=== PATIENT | male | born 1990 | race Caucasian/White ===

== ENCOUNTER 2017-10-30 07:16 | Day surgery (SDC) | payer OTHER ==
[2017-10-27 11:55] LABS: Absolute Lymphocytes (CBC) 1.9 K/uL (0.7-4.9); Absolute Monocytes 0.5 K/uL (0.1-1.3); Absolute Neutrophil 3.4 K/uL (1.8-8.0); Basophils % 0.7 % (0-1.3); Eosinophils % 1.5 % (0-4.4); Hematocrit 45.3 % (39.6-49.0); Lymphocytes % 32.3 % (15.3-44.8); MCH 29.6 pg (27.0-35.0); MCV 85.9 fL (80-100); Monocytes % 8.9 % (3.3-12.3); RBC Red Blood Cell Count 5.28 M/uL (4.33-5.43)
[2017-10-27 12:12] LABS: Potassium 4.1 mmol/L (3.5-5.1)
[2017-10-27 12:16] LABS: Albumin 4.4 g/dL (3.4-5.0); Bilirubin Direct 0.1 mg/dL (0-0.2); Bilirubin Total 0.7 mg/dL (0.2-1.0); Protein, Total 7.9 g/dL (6.4-8.2)
[2017-10-30] MEDS ORDERED: CEFOXITIN/SWI 1gm 1 GM/10 ML SYR ONE (07:32)
[2017-10-30] MEDS: Ringers Lactate 1,000 ML IV ONE ×2 (07:38→08:39)
[2017-10-30] MEDS ORDERED: PROPOFOL 200 MG/20 ML VIAL IV ONE (08:18)
[2017-10-30] MEDS ORDERED: MIDAZOLAM HCL 2 MG/2 ML INJ ONE (08:22)
[2017-10-30] MEDS ORDERED: LIDOCAINE 2% MPF 5 ML VIAL ONE (08:22)
[2017-10-30] MEDS ORDERED: FENTANYL CITR 100 MCG/2 ML ONE (08:22)
[2017-10-30] MEDS ORDERED: ONDANSETRON HCL 40 MG/20 ML VIAL ONE (08:23)
[2017-10-30] MEDS ORDERED: ROCURONIUM 50 MG/5 ML VIAL IV ONE (08:23)
--- NOTE | 2017-10-30 09:18 | P.BOP ---
Preoperative diagnosis: symptomatic cholithiasis, gallbladder polyps, RUQ pain Postoperative diagnosis: same Primary procedure: Laparoscopic cholecystectomy Estimated blood loss: <5cc Specimen: gb Findings: as above Anesthesia: General Complications: None Transferred to: Recovery Room Condition: Good
[2017-10-30] MEDS ORDERED: GLYCOPYRROLATE 0.2 MG/ML SYR ONE (09:19)
[2017-10-30] MEDS ORDERED: NEOSTIGMINE 1 MG/ML -5 ML SYRINGE ONE (09:19)
[2017-10-30] MEDS: MEPERIDINE HCL 50 MG/ML AMP ONE ×2 (09:54→10:00)
[2017-10-30] MEDS ORDERED: ONDANSETRON 4 MG/2 ML VIAL ONE (09:57)
[2017-10-30] MEDS ORDERED: CODEINE 30MG/APAP 300MG TAB ONE (10:39)
[2017-10-30] MEDS ORDERED: CODEINE 30MG/APAP 300MG TAB PO ONE (10:40)
--- NOTE | 2017-10-30 21:43 | OP ---
Date of Procedure: 10/30/2017 Surgeon: Raymond Dykes MD Preoperative Diagnoses: Symptomatic cholelithiasis, gallbladder polyps, right upper quadrant pain, c holecystitis. Postoperative Diagnoses: Symptomatic cholelithiasis, gallbladder polyps, right upper quadrant pain, cholecystitis. Procedure: Laparoscopic cholecystectomy. Anesthesia: General plus local. Indications: This is a case of a 27-year-old patient, comes to us with above diagnosis. Fully expla ined the benefits, alternatives, and risks of laparoscopic, possible open cholecystectomy which inclu de but not limited to infection, bleeding, damage to adjacent structures as complication, choledochol ithiasis, bile leak, pancreatitis, GA, and even . He also understands this may not relieve any symptoms. He might need more than one surgical intervention. He understood. Signed a consent. Description Of Procedure: The patient was brought to the operating room, placed in supine position. Anesthesia was without complication. Abdominal area was prepped and draped in a sterile fashion. M arcaine 0.5% injected for local anesthetic, followed by sharp incision of the skin in the infraumbili stacy region. Incision was carried down to fascia, which was opened under direct vision. Peritoneum w as encountered, which was opened under direct vision. Vicryl #1 placed inside the fascia. Jordyn tr ocar was carefully introduced. No bleeding was obtained. I placed 3 more trocars, 5 mm each one of them. One in the right upper quadrant under direct visualization. A grasper was placed in the fundu s of the gallbladder, another grasper in the infundibulum, retracting the gallbladder in the inferola teral fashion exposing the triangle of Calot. I obtained critical view of safety. Cystic duct and c ystic artery were clearly isolated free circumferentially and a connection between those and the gall bladder was clearly identified. I proceeded to ligate those with at least 3 clips proximal, 1 clip d istal, ligation in the middle. Same was done with the cystic artery. A small little branch of the c ystic artery was also ligated using same technique; hepatic arteries and common bile duct were protec shanda at all times. Gallbladder was removed from the liver using Bovie cauterizer and removed from abd ominal cavity using an EndoCatch through the umbilical incision. The area was inspected once again. Clips in gallbladder fossa were intact with no bile leak. No bleeding. In that moment I proceeded to remove the trocars under direct vision. Deflated pneumoperitoneum. Closed the fascia with #1 Solitario ryl irrigated the incision closed that with 3-0 chromic and skin with staple comes RA skin with a sub cuticular fashion. A 3-0 chromic and Steri-Strips on top. Sponge count and instrument counts were c orrect. The patient tolerated the procedure well. The patient was sent to recovery in stable condit ion FH are summary Juan Diego Bolanos. Diagnoses: Symptomatic cholelithiasis, gallbladder polyps, right upper quadrant pain, cholecystitis. Disposition: Home. Activity: As tolerated. No heavy lifting. Followup: Follow up in my office in 1 week. Call for appointment [phone]. Keep area dry for 48 ho urs, then may shower. Keep Steri-Strips intact. Medications: Include Tylenol No. 3 q.4 hours p.r.n. pain, Bactrim DS take b.i.d. NINA/RO Voice ID: [id number] Report ID: [id number]
== END 2017-10-30 11:35 | disposition home or self-care (01) ==
LOC: OR 07:16
PROVIDERS: ATTEND Surgery
PROC: 0FT44ZZ Resection of Gallbladder, Percutaneous Endoscopic Approach (ICD-10-PCS; principal; 2017-10-30 08:30)
DX: K80.10 Calculus of gallbladder with chronic cholecystitis without obstruction (principal); I10 Essential (primary) hypertension; Z88.6 Allergy status to analgesic agent
CPT/HCPCS: 36415; 80048; 80076; 82150; 83690; 85025; 88304; J2175; J2250; J2405; J2710; J3010

== ENCOUNTER 2017-11-15 18:06 | Emergency (ER) | payer OTHER ==
[2017-11-15] MEDS ORDERED: ASPIRIN 81 MG CHEWABLE TABLET ONE (18:34)
[2017-11-15] MEDS ORDERED: KETOROLAC 30 MG/ML INJ ONE (18:35)
[2017-11-15] MEDS ORDERED: NA CHLORIDE 0.9% 1,000 ML ONE (18:35)
[2017-11-15] MEDS ORDERED: PANTOPRAZOLE 40 MG INJ ONE (18:49)
[2017-11-15 18:57] LABS: Absolute Lymphocytes (CBC) 2.7 K/uL (0.7-4.9); Absolute Monocytes 0.6 K/uL (0.1-1.3); Absolute Neutrophil 3.9 K/uL (1.8-8.0); Eosinophils % 2.4 % (0-4.4); Hematocrit 44.8 % (39.6-49.0); Lymphocytes % 35.8 % (15.3-44.8); MCH 29.6 pg (27.0-35.0); MCV 86.1 fL (80-100); MPV 8.2 fL (7.6-11.3); Monocytes % 8.1 % (3.3-12.3); RBC Red Blood Cell Count 5.21 M/uL (4.33-5.43)
[2017-11-15 19:01] LABS: Protime INR 1.01
--- NOTE | 2017-11-15 19:14 | RAD REPORT ---
EXAM DESCRIPTION: [facility]o Single View11/15/2017 7:02 pm CLINICAL HISTORY: Chest pain COMPARISON: none FINDINGS: The lungs appear clear of acute infiltrate. The heart is normal size IMPRESSION: No acute abnormalities displayed
[2017-11-15 19:17] LABS: ALT/SGPT 29 U/L (12-78); AST/SGOT 14 U/L (15-37); Albumin 4.3 g/dL (3.4-5.0); Alkaline Phosphatase 71 U/L (45-117); BUN Blood Urea Nitrogen 16 mg/dL (7-18); Bicarbonate 29 mmol/L (21-32); Bilirubin Direct 0.1 mg/dL (0-0.2); Bilirubin Total 0.4 mg/dL (0.2-1.0); CKMB Creatine Kinase MB < 1.0 ng/mL (0.3-3.6); Creatine Phosphokinase 33 U/L (39-308); Glucose Level 94 mg/dL (74-106); Magnesium 2.3 mg/dL (1.8-2.4); NT PRO-BNP 18 pg/mL (<125); Potassium 3.5 mmol/L (3.5-5.1); Protein, Total 7.8 g/dL (6.4-8.2); Sodium Level 140 mmol/L (136-145)
[2017-11-15 20:44] LABS: Urine Blood NEGATIVE (NEG); Urine Glucose NEGATIVE (NEG); Urine Protein NEGATIVE (NEG); Urine pH 7.5 (5.0-7.0)
[2017-11-15] MEDS ORDERED: MAGNE/ALUM HYDROXD 30 ML UCUP ONE (20:57)
[2017-11-15] MEDS ORDERED: LIDOCAINE VISCOUS 2% SOLN 15 ML UDC ONE (20:57)
--- NOTE | 2017-11-15 21:48 | ER ---
Nurse's Notes [facility] Name: Juan Diego Bolanos Age: 27 yrs Sex: Male : 1990 Arrival Date: 11/15/2017 Time: 18:08 Bed 6 Private MD: Munir Porras Diagnosis: Other chest pain Presentation: 11/15 18:15 Presenting complaint: Patient states: Sternal chest pain that started this afternoon. aj Patient reports similar pain since starting Losartan "months ago." Describes pain as radiating up esophagus and across clavicles, "inflammation pain". Patient appears anxious. Transition of care: patient was not received from another setting of care. Onset of symptoms was November 15, 2017. Risk Assessment: Do you want to hurt yourself or someone else? Patient reports no desire to harm self or others. Initial Sepsis Screen: Does the patient meet any 2 criteria? No. Patient's initial sepsis screen is negative. Does the patient have a suspected source of infection? No. Patient's initial sepsis screen is negative. Care prior to arrival: None. 18:15 Method Of Arrival: Wheelchair 18:15 Acuity: ÁNGEL 3 aj Triage Assessment: 18:17 General: Appears in no apparent distress. comfortable, Behavior is calm, cooperative, aj appropriate for age. Pain: Complains of pain in right clavicle, left clavicle and mid-sternal area. Neuro: Level of Consciousness is awake, alert, obeys commands, Oriented to person, place, time, situation, Appropriate for age. Cardiovascular: Reports chest pain, Capillary refill < 3 seconds in bilateral fingers Patient's skin is warm and dry. Respiratory: Airway is patent Respiratory effort is even, unlabored, Respiratory pattern is symmetrical, hyperventilation the patient has mild shortness of breath. Derm: Skin is intact, is healthy with good turgor, Skin is pink, warm \\T\\ dry. normal. Historical: - Allergies: 18:17 No Known Allergies; aj - Home Meds: 18:17 losartan 100 mg oral tab 1 tab once daily [Active]; Nexium Oral [Active]; aj - PMHx: 18:17 GERD; Hypertension; aj - PSHx: 18:17 Cholecystectomy; aj - Immunization history:: Adult Immunizations up to date. - Social history:: Smoking status: Patient/guardian denies using tobacco. - Ebola Screening: : Patient negative for fever greater than or equal to 101.5 degrees Fahrenheit, and additional compatible Ebola Virus Disease symptoms Patient denies exposure to infectious person Patient denies travel to an Ebola-affected area in the 21 days before illness onset No symptoms or risks identified at this time. Screenin:42 Abuse screen: Denies threats or abuse. Denies injuries from another. Nutritional hj screening: No deficits noted. Tuberculosis screening: No symptoms or risk factors identified. Fall Risk None identified. Assessment: 18:43 Pain: Pain began. hj 18:43 Pain: Pain radiates to mid-sternal area and left clavicle and right clavicle. hj 18:43 General: Appears in no apparent distress. uncomfortable, Behavior is cooperative, aj appropriate for age, anxious. Neuro: Level of Consciousness is awake, alert, obeys commands, Oriented to person, place, time, situation, Appropriate for age. Cardiovascular: Reports chest pain, Heart tones S1 S2 present Capillary refill < 3 seconds Patient's skin is warm and dry. Pulses are all present. Rhythm is regular Chest pain. Respiratory: Airway is patent Respiratory effort is even, unlabored, Respiratory pattern is regular, symmetrical. GI: No signs and/or symptoms were reported involving the gastrointestinal system. : No signs and/or symptoms were reported regarding the genitourinary system. EENT: No signs and/or symptoms were reported regarding the EENT system. Derm: No signs and/or symptoms reported regarding the dermatologic system. Musculoskeletal: No signs and/or symptoms reported regarding the musculoskeletal system. 19:00 Reassessment: Patient and/or family updated on plan of care and expected duration. Pain aj level reassessed. Patient is alert, oriented x 3, equal unlabored respirations, skin warm/dry/pink. awaiting reports and POC: family in room;. 19:34 General: Appears in no apparent distress. Behavior is calm, cooperative, appropriate ea for age. Pain: Denies pain. Neuro: Level of Consciousness is awake, alert, obeys commands, Oriented to person, place, time, situation. Cardiovascular: Heart tones S1 S2 present Patient's skin is warm and dry. Respiratory: Airway is patent Respiratory effort is even, unlabored, Respiratory pattern is regular, symmetrical. GI: No signs and/or symptoms were reported involving the gastrointestinal system. : No signs and/or symptoms were reported regarding the genitourinary system. EENT: No signs and/or symptoms were reported regarding the EENT system. Derm: No signs and/or symptoms reported regarding the dermatologic system. Musculoskeletal: No signs and/or symptoms reported regarding the musculoskeletal system. 20:44 Reassessment: Patient and/or family updated on plan of care and expected duration. Pain ea level reassessed. Patient is alert, oriented x 3, equal unlabored respirations, skin warm/dry/pink. 21:44 Reassessment: Patient and/or family updated on plan of care and expected duration. Pain ea level reassessed. Patient is alert, oriented x 3, equal unlabored respirations, skin warm/dry/pink. 22:08 Reassessment: Patient and/or family updated on plan of care and expected duration. Pain ea level reassessed. Patient is alert, oriented x 3, equal unlabored respirations, skin warm/dry/pink. Discharge instructions given to patient, verbalized the understanding of instructions. Vital Signs: 18:17 BP 164 / 92; Pulse 82; Resp 22; Temp 97.6; Pulse Ox 100% on R/A; Weight 72.57 kg; aj Height 6 ft. 0 in. (182.88 cm); 19:00 BP 158 / 90; Pulse 80; Resp 18; Pulse Ox 100% on R/A; hj 20:23 BP 124 / 79; Pulse 76; Resp 18; Pulse Ox 99% on R/A; ea 20:39 BP 122 / 74; Pulse 72; Resp 18; Pulse Ox 99% on R/A; Pain 2/10; ea 20:48 BP 132 / 87 LA; Pulse 72; ea 20:48 BP 135 / 89 RA; Pulse 73; ea 21:30 BP 124 / 94; Pulse 65; Resp 18; Pulse Ox 98% ; ea 22:10 BP 125 / 87; Pulse 70; Resp 18; Temp 97.8; Pulse Ox 98% on R/A; ea 18:17 Body Mass Index 21.70 (72.57 kg, 182.88 cm) ED Course: 18:08 Patient arrived in ED. mr 18:08 None, None is Private Physician. mr 18:08 Munir Porras MD is Private Physician. mr 18:14 [facility] White [facility]. cp 18:14 Benigno Chang MD is Attending Physician. cp 18:16 Triage completed. aj 18:17 Arm band placed on left wrist. Patient placed in an exam room. EKG completed in triage. aj Results shown to MD. 18:20 Raymond Coleman, YVONNE is Primary Nurse. hj 18:25 Inserted saline lock: 22 gauge in left antecubital area, using aseptic technique. Blood cc3 collected. 18:42 Patient has correct armband on for positive identification. Placed in gown. Bed in low hj position. Call light in reach. Side rails up X 1. Adult w/ patient. 18:43 monitoring analyst on. Pulse ox on. NIBP on. hj 18:43 Patient maintains SpO2 saturation greater than 95% on room air. hj 19:00 XRAY Chest (1 view) In Process Unspecified. EDMS 19:00 Report given to Deidre RUSSELL for continuity of care. cc3 19:49 Deidre Lozada, YVONNE is Primary Nurse. ea 22:08 No provider procedures requiring assistance completed. IV discontinued, intact, ea bleeding controlled, No redness/swelling at site. Pressure dressing applied. Administered Medications: 18:28 Drug: TORadol 30 mg Route: IVP; Site: left antecubital; hj 19:22 Follow up: Response: No adverse reaction; Pain is decreased hj 18:28 Drug: Aspirin Chewable Tablet 324 mg Route: PO; hj 19:22 Follow up: Response: No adverse reaction; Pain is decreased hj 18:28 Drug: NS 0.9% 1000 ml Route: IV; Rate: 1 bolus; Site: left antecubital; hj 19:22 Follow up: IV Status: Infusion continued hj 18:45 Drug: ProTONIX 40 mg Route: IVP; Site: left antecubital; cc3 19:22 Follow up: Response: No adverse reaction hj 20:56 Drug: GI Cocktail without - (Maalox Suspension 30 ml, Lidocaine Liquid 2 % 15 ea ml) Route: PO; 21:06 Follow up: Response: No adverse reaction ea Outcome: 21:47 Discharge ordered by . cp 22:09 Discharged to home ambulatory, with family. ea 22:09 Condition: improved 22:09 Discharge instructions given to patient, family, Instructed on discharge instructions, follow up and referral plans. medication usage, Demonstrated understanding of instructions, follow-up care, medications, Prescriptions given X 3. 22:12 Patient left the ED. ea Signatures: Dispatcher [employer] Cindy Queen, YVONNE RN Jacque Schwab Henry, RN RN Colten Clark PA PA cp Antunez, Elena, Sumi Amato RN, ea cc3
--- NOTE | 2017-11-15 21:48 | EDPHYS ---
Physician Documentation [facility] Name: Juan Diego Bolanos Age: 27 yrs Sex: Male : 1990 Arrival Date: 11/15/2017 Time: 18:08 Bed 6 Private MD: Munir Porras ED Physician Benigno Chang HPI: 11/15 18:29 This 27 yrs old Male presents to ER via Wheelchair with complaints of Chest cp Pain. 18:30 The patient or guardian reports chest pain that is located primarily in the substernal cp area, anterior chest wall, bilaterally. 18:30 The pain radiates to both shoulders, left jaw. Associated signs and symptoms: Pertinent cp negatives: abdominal pain, cough, dizziness, headache, lower extremity pain, lower extremity swelling, recent travel, shortness of breath, syncope, vomiting. The chest pain is described as described as inflammation. Duration: The patient or guardian reports multiple episodes, that wax and wane. Modifying factors: the symptoms are aggravated by nothing. Patient reports intermittent episodes of similar pain since starting Losarten blood pressure medication. Historical: - Allergies: 18:17 No Known Allergies; aj - Home Meds: 18:17 losartan 100 mg oral tab 1 tab once daily [Active]; Nexium Oral [Active]; aj - PMHx: 18:17 GERD; Hypertension; aj - PSHx: 18:17 Cholecystectomy; aj - Immunization history:: Adult Immunizations up to date. - Social history:: Smoking status: Patient/guardian denies using tobacco. - Ebola Screening: : Patient negative for fever greater than or equal to 101.5 degrees Fahrenheit, and additional compatible Ebola Virus Disease symptoms Patient denies exposure to infectious person Patient denies travel to an Ebola-affected area in the 21 days before illness onset No symptoms or risks identified at this time. ROS: 18:35 Constitutional: Negative for body aches, chills, fever, poor PO intake. cp 18:35 Eyes: Negative for injury, pain, redness, and discharge, ENT: Negative for injury, cp pain, and discharge. 18:35 Neck: Negative for injury or acute deformity, pain with movement, pain at rest, stiffness, tenderness. 18:35 Cardiovascular: Positive for chest pain, Negative for edema, orthopnea, palpitations. 18:35 Respiratory: Negative for cough, dyspnea on exertion, shortness of breath, wheezing. 18:35 Abdomen/GI: Negative for abdominal pain, nausea, vomiting, and diarrhea, anorexia, black/tarry stool, rectal bleeding. 18:35 Back: Negative for pain at rest, pain with movement, radiated pain. 18:35 : Negative for urinary symptoms. 18:35 Skin: Negative for cellulitis, rash. 18:35 Neuro: Negative for altered mental status, dizziness, headache, syncope, near syncope, weakness. 18:35 All other systems are negative. Exam: 18:29 ECG was reviewed by the Attending Physician. cp 18:38 Constitutional: The patient appears in no acute distress, alert, awake, cp non-diaphoretic, non-toxic, well developed, well nourished. 18:38 Head/Face: Normocephalic, atraumatic. Eyes: Pupils equal round and reactive to light, cp extra-ocular motions intact. Lids and lashes normal. Conjunctiva and sclera are non-icteric and not injected. Cornea within normal limits. Periorbital areas with no swelling, redness, or edema. ENT: Nares patent. No nasal discharge, no septal abnormalities noted. Tympanic membranes are normal and external auditory canals are clear. Oropharynx with no redness, swelling, or masses, exudates, or evidence of obstruction, uvula midline. Mucous membranes moist. Neck: Trachea midline, no thyromegaly or masses palpated, and no cervical lymphadenopathy. Supple, full range of motion without nuchal rigidity, or vertebral point tenderness. No Meningismus. Chest/axilla: Normal chest wall appearance and motion. Nontender with no deformity. No lesions are appreciated. Cardiovascular: Regular rate and rhythm with a normal S1 and S2. No gallops, murmurs, or rubs. Normal PMI, no JVD. No pulse deficits. Respiratory: Lungs have equal breath sounds bilaterally, clear to auscultation and percussion. No rales, rhonchi or wheezes noted. No increased work of breathing, no retractions or nasal flaring. Abdomen/GI: Soft, non-tender, with normal bowel sounds. No distension or tympany. No guarding or rebound. No evidence of tenderness throughout. Back: No spinal tenderness. No costovertebral tenderness. Full range of motion. Skin: Warm, dry with normal turgor. Normal color with no rashes, no lesions, and no evidence of cellulitis. MS/ Extremity: Pulses equal, no cyanosis. Neurovascular intact. Full, normal range of motion. Neuro: Awake and alert, GCS 15, oriented to person, place, time, and situation. Cranial nerves II-XII grossly intact. Motor strength 5/5 in all extremities. Sensory grossly intact. Cerebellar exam normal. Normal gait. 21:04 ECG was reviewed by the Attending Physician. cp Vital Signs: 18:17 BP 164 / 92; Pulse 82; Resp 22; Temp 97.6; Pulse Ox 100% on R/A; Weight 72.57 kg; aj Height 6 ft. 0 in. (182.88 cm); 19:00 BP 158 / 90; Pulse 80; Resp 18; Pulse Ox 100% on R/A; hj 20:23 BP 124 / 79; Pulse 76; Resp 18; Pulse Ox 99% on R/A; ea 20:39 BP 122 / 74; Pulse 72; Resp 18; Pulse Ox 99% on R/A; Pain 2/10; ea 20:48 BP 132 / 87 LA; Pulse 72; ea 20:48 BP 135 / 89 RA; Pulse 73; ea 21:30 BP 124 / 94; Pulse 65; Resp 18; Pulse Ox 98% ; ea 22:10 BP 125 / 87; Pulse 70; Resp 18; Temp 97.8; Pulse Ox 98% on R/A; ea 18:17 Body Mass Index 21.70 (72.57 kg, 182.88 cm) aj MDM: 18:15 Patient medically screened. cp 19:00 Differential diagnosis: abnormal EKG, acute myocardial infarction, acute pericarditis, cp anxiety, chest wall pain, cholecystitis, Cholelithiasis costochondritis, esophagitis, gastritis, myocarditis, pancreatitis, peptic ulcer disease, pericarditis, pleurisy, pneumonia, pneumothorax, pulmonary embolus, thoracic aortic disection. 21:47 Data reviewed: vital signs, nurses notes, lab test result(s), EKG, radiologic studies, cp plain films. 21:47 Test interpretation: by ED physician or midlevel provider: ECG, plain radiologic cp studies. Counseling: I had a detailed discussion with the patient and/or guardian regarding: the historical points, exam findings, and any diagnostic results supporting the discharge/admit diagnosis, the presence of at least one elevated blood pressure reading (>120/80) during this emergency department visit, lab results, the need for outpatient follow up, a family practitioner, to return to the emergency department if symptoms worsen or persist or if there are any questions or concerns that arise at home. Response to treatment: the patient's symptoms have markedly improved after treatment, and as a result, I will discharge patient. Special discussion: Based on the patient's history, exam, and Dx evaluation, there is no indication for emergent intervention or inpatient Tx. It is understood by the patient/guardian that if the Sx's persist or worsen they need to return immediately for re-evaluation. 11/15 18:28 Order name: Basic Metabolic Panel; Complete Time: 19:26 cp 11/15 19:26 Interpretation: Normal except: GFR 65. cp 11/15 18:28 Order name: CBC with Diff; Complete Time: 19:45 cp 11/15 18:28 Order name: Ckmb; Complete Time: 19:26 cp 11/15 18:28 Order name: CPK; Complete Time: 19:26 cp 11/15 20:50 Interpretation: Abnormal: CPK 33. cp 11/15 18:28 Order name: LFT's; Complete Time: 19:26 cp 11/15 18:28 Order name: Magnesium; Complete Time: 19:26 cp 11/15 18:28 Order name: NT PRO-BNP; Complete Time: 19:26 cp 11/15 18:28 Order name: PT-INR; Complete Time: 19:45 cp 11/15 18:28 Order name: Ptt, Activated; Complete Time: 19:45 cp 11/15 18:28 Order name: Troponin (emerg Dept Use Only); Complete Time: 19:26 cp 11/15 19:47 Order name: D-Dimer; Complete Time: 20:42 cp 11/15 20:42 Interpretation: Within normal limits: D-DIMER < 215. cp 11/15 19:47 Order name: LAB Add On cp 11/15 20:33 Order name: Urine Dipstick--Ancillary (enter results); Complete Time: 20:50 mt 11/15 21:06 Order name: Troponin (emerg Dept Use Only); Complete Time: 21:46 ea 11/15 18:15 Order name: EKG; Complete Time: 18:15 cp 11/15 18:15 Order name: EKG - Nurse/Tech; Complete Time: 18:29 cp 11/15 18:28 Order name: XRAY Chest (1 view); Complete Time: 19:26 cp 11/15 19:26 Interpretation: Report review. 11/15 18:28 Order name: Cardiac monitoring; Complete Time: 18:29 cp 11/15 18:28 Order name: IV Saline Lock; Complete Time: 18:40 cp 11/15 18:28 Order name: Labs collected and sent; Complete Time: 18:40 cp 11/15 18:28 Order name: O2 Per Protocol; Complete Time: 18:29 cp 11/15 18:28 Order name: O2 Sat Monitoring; Complete Time: 18:29 cp 11/15 18:28 Order name: Urine Dipstick-Ancillary (obtain specimen); Complete Time: 20:38 cp 11/15 20:43 Order name: Blood Pressure Recheck: bilateral upper extremities; Complete Time: 20:49 cp 11/15 21:06 Order name: EKG; Complete Time: 21:07 ea 11/15 21:06 Order name: EKG - Nurse/Tech; Complete Time: 21:07 ea EC:29 Rate is 86 beats/min. Rhythm is regular. WA interval is normal. QRS interval is normal. cp QT interval is normal. T waves are Flattened in lead aVL. Interpreted by me. Reviewed by me. 21:04 Rate is 73 beats/min. Rhythm is regular. WA interval is normal. QRS interval is normal. cp QT interval is normal. T waves are Flattened in leads III, aVL. Interpreted by me. Reviewed by me. Administered Medications: 18:28 Drug: TORadol 30 mg Route: IVP; Site: left antecubital; hj 19:22 Follow up: Response: No adverse reaction; Pain is decreased hj 18:28 Drug: Aspirin Chewable Tablet 324 mg Route: PO; hj 19:22 Follow up: Response: No adverse reaction; Pain is decreased hj 18:28 Drug: NS 0.9% 1000 ml Route: IV; Rate: 1 bolus; Site: left antecubital; hj 19:22 Follow up: IV Status: Infusion continued hj 18:45 Drug: ProTONIX 40 mg Route: IVP; Site: left antecubital; cc3 19:22 Follow up: Response: No adverse reaction hj 20:56 Drug: GI Cocktail without - (Maalox Suspension 30 ml, Lidocaine Liquid 2 % 15 ea ml) Route: PO; 21:06 Follow up: Response: No adverse reaction ea Disposition: 11/15/17 21:47 Discharged to Home. Impression: Other chest pain. - Condition is Stable. - Discharge Instructions: Nonspecific Chest Pain, Chest Wall Pain, Aspirin and Your Heart. - Prescriptions for ketorolac 10 mg Oral tablet - take 1 tablet by ORAL route every 6 hours As needed not to exceed 40 mg in 24hrs; 15 tablet. Pepcid 20 mg Oral Tablet - take 1 tablet by ORAL route every 12 hours for 5 days; 10 tablet. Ultram 50 mg Oral Tablet - take 1 tablet by ORAL route every 6 hours As needed no driving while taking medication; 12 tablet. - Medication Reconciliation Form, Thank You Letter, Antibiotic Education, Prescription Opioid Use form. - Follow up: Private Physician; When: 1 - 2 days; Reason: Recheck today's complaints. - Problem is new. - Symptoms have improved. Addendum: 11/19/2017 01:58 Co-signature as Attending Physician, Benigno Chang MD. r n Signatures: Dispatcher [employer] EDMS Cindy Petersen RN Benigno Pacheco MD MD rn Joaquin, Henry RN Colten Pratt PA PA cp Antunez, Elena RN Sumi Amato ea cc3 Corrections: (The following items were deleted from the chart) 11/15 22:12 21:47 11/15/2017 21:47 Discharged to Home. Impression: Other chest pain. Condition is ea Stable. Forms are Medication Reconciliation Form, Thank You Letter, Antibiotic Education, Prescription Opioid Use. Follow up: Private Physician; When: 1 - 2 days; Reason: Recheck today's complaints. Problem is new. Symptoms have improved. cp
--- NOTE | 2017-11-16 16:30 | EKG ---
Test Date: 2017-11-15 Test Time: 18:25:21 [employer]: MICHELL MEASUREMENT RESULTS: Intervals: Rate: 86 MT: 130 QRSD: 94 QT: 378 QTc: 452 [place]: P: 64 MT: 130 QRS: 40 T: 59 INTERPRETIVE STATEMENTS: Normal sinus rhythm Normal ECG No previous ECG available for comparison Electronically Signed On 11-16-17 16:27:51 CDT by Nazario Hernandez
--- NOTE | 2017-11-16 16:30 | EKG ---
Test Date: 2017-11-15 Test Time: 21:00:53 Application Integration Specialist: DANA MEASUREMENT RESULTS: Intervals: Rate: 73 IN: 126 QRSD: 94 QT: 384 QTc: 423 [place]: P: 56 IN: 126 QRS: 32 T: 49 INTERPRETIVE STATEMENTS: Normal sinus rhythm with sinus arrhythmia Normal ECG No previous ECG available for comparison Electronically Signed On 11-16-17 16:27:40 CDT by Nazario Hernandez
== END 2017-11-15 22:12 | disposition home or self-care (01) ==
LOC: ER 18:06
DX: R07.89 Other chest pain (principal); I10 Essential (primary) hypertension; K21.9 Gastro-esophageal reflux disease without esophagitis
CPT/HCPCS: 36415; 71045; 80048; 80076; 81003; 82550; 82553; 83735; 83880; 84484; 85025; 85379; 85610; 85730; 93005; 96361; 96374; 96375; 99285; C9113; J7030

== ENCOUNTER 2018-01-09 23:16 | Emergency (ER) | payer OTHER ==
[2018-01-09] MEDS ORDERED: DIPHENHYDRAMINE 25 MG TAB/CAP ONE (23:56)
[2018-01-09] MEDS ORDERED: METOCLOPRAMIDE 10 MG/2mL INJ ONE (23:56)
[2018-01-10 00:04] LABS: Absolute Lymphocytes (CBC) 2.9 K/uL (0.7-4.9); Absolute Monocytes 0.8 K/uL (0.1-1.3); Absolute Neutrophil 3.9 K/uL (1.8-8.0); Basophils % 0.6 % (0-1.3); Eosinophils % 2.1 % (0-4.4); Hematocrit 43.3 % (39.6-49.0); Lymphocytes % 36.7 % (15.3-44.8); MCH 30.3 pg (27.0-35.0); MCV 86.4 fL (80-100); MPV 8.8 fL (7.6-11.3); Monocytes % 9.9 % (3.3-12.3); RBC Red Blood Cell Count 5.01 M/uL (4.33-5.43)
[2018-01-10 00:09] LABS: Protime INR 0.91
[2018-01-10 00:20] LABS: Albumin 4.2 g/dL (3.4-5.0); Bilirubin Total 0.4 mg/dL (0.2-1.0); Potassium 3.9 mmol/L (3.5-5.1); Protein, Total 7.5 g/dL (6.4-8.2)
--- NOTE | 2018-01-10 00:37 | ER ---
Nurse's Notes [facility] Name: Juan Diego Bolanos Age: 28 yrs Sex: Male : 1990 Arrival Date: 01/09/2018 Time: 23:18 Bed 7 Private MD: Munir Porras Diagnosis: post coital headache Presentation: 01/09 23:26 Presenting complaint: Patient states: I was being intimate with my significant other la1 and suddenly got an extremely bad headache, 10/10 and nausea, the pain has gone down some but is still very bad. Transition of care: patient was not received from another setting of care. Onset of symptoms was January 09, 2018. Risk Assessment: Do you want to hurt yourself or someone else? Patient reports no desire to harm self or others. Initial Sepsis Screen: Does the patient meet any 2 criteria? No. Patient's initial sepsis screen is negative. Does the patient have a suspected source of infection? No. Patient's initial sepsis screen is negative. Care prior to arrival: None. 23:26 Method Of Arrival: Ambulatory la1 23:26 Acuity: ÁNGEL 2 la1 Triage Assessment: 01/10 00:50 Headache History: Denies prior headaches. bb 00:51 Pain: Also complains of no other associated symptoms. bb Historical: - Allergies: 01/09 23:27 No Known Allergies; la1 - PMHx: 23:27 Hypertension; GERD; la1 - Immunization history:: Adult Immunizations up to date. - Social history:: Smoking status: Patient/guardian denies using tobacco. - Ebola Screening: : No symptoms or risks identified at this time. Screenin:30 Abuse screen: Denies threats or abuse. Nutritional screening: No deficits noted. bb Tuberculosis screening: No symptoms or risk factors identified. Fall Risk None identified. Assessment: 23:30 General: Appears in no apparent distress. slender, well groomed, Behavior is calm, bb cooperative. Pain: Complains of pain in head Pain currently is 5 out of 10 on a pain scale. at worst was 10 out of 10 on a pain scale. Pain began suddenly. Neuro: Level of Consciousness is awake, alert, obeys commands, Oriented to person, place, time, situation. Cardiovascular: Heart tones S1 S2 present Capillary refill < 3 seconds Patient's skin is warm and dry. Respiratory: Respiratory effort is even, unlabored, Breath sounds are clear bilaterally. GI: Abdomen is non-distended, Abd is soft and non tender X 4 quads. Reports nausea. Derm: Skin is pink, warm \T\ dry. Musculoskeletal: Circulation, motion, and sensation intact. 01/10 00:11 Reassessment: pt to CT via wheelchair accompanied by jewelry technician. bb 00:32 Reassessment: Patient is alert, oriented x 3, equal unlabored respirations, skin bb warm/dry/pink. awaiting diagnostic results. 00:48 Reassessment: Patient and/or family updated on plan of care and expected duration. Pain bb level reassessed. Patient is alert, oriented x 3, equal unlabored respirations, skin warm/dry/pink. pt states he is feeling better and verbalized understanding of and agrees to plan of care discharge instructions given pt ambulated with steady gait to exit. Vital Signs: 01/09 23:27 BP 140 / 75; Pulse 80; Resp 16; Temp 97.0; Pulse Ox 98% on R/A; Weight 74.84 kg; Height la1 6 ft. 0 in. (182.88 cm); 01/10 00:31 BP 117 / 58; Pulse 61; Resp 16; Pulse Ox 99% ; bb 01/09 23:27 Body Mass Index 22.38 (74.84 kg, 182.88 cm) la1 [place] Coma Score: 01/09 23:30 Eye Response: spontaneous(4). Verbal Response: oriented(5). Motor Response: obeys bb commands(6). Total: 15. ED Course: 23:18 Patient arrived in ED. es 23:19 Munir Porras MD is Private Physician. es 23:24 Skylar Dumas, YVONNE is Primary Nurse. bb 23:27 Triage completed. la1 23:28 Arm band placed on right wrist. la1 23:30 Patient has correct armband on for positive identification. Bed in low position. Call bb light in reach. Side rails up X 1. Pulse ox on. NIBP on. 23:36 Dannie Durham MD is Attending Physician. ps1 23:55 Inserted saline lock: 20 gauge in right antecubital area, using aseptic technique. oe Blood collected. 01/10 00:13 Head angio In Process Unspecified. EDMS 00:13 Head Brain Wo Cont In Process Unspecified. EDMS 00:36 Munir Porras MD is Referral Physician. ps1 00:39 CT completed. Patient tolerated procedure well. Patient moved to CT via wheelchair. Patient moved back from CT. 00:49 No provider procedures requiring assistance completed. IV discontinued, intact, bb bleeding controlled, No redness/swelling at site. Pressure dressing applied. Administered Medications: 01/09 23:56 Drug: Reglan 10 mg Route: IVP; Site: right antecubital; bb 01/10 00:47 Follow up: Response: Marked relief of symptoms bb 01/09 23:56 Drug: Benadryl 25 mg {Note: given PO per verbal order Dr Durham.} Route: IVP; Site: Other; 01/10 00:47 Follow up: Response: Marked relief of symptoms bb Outcome: 00:37 Discharge ordered by MD. ps1 00:51 Discharged to home ambulatory. bb 00:51 Condition: stable 00:51 Discharge instructions given to patient, Instructed on discharge instructions, follow up and referral plans. Demonstrated understanding of instructions, follow-up care. 00:51 Patient left the ED. bb Signatures: Dispatcher [employer] EDCarlyn Castro Ervin Skylar Dumas RN RN Higinio Pate RN RN laSamy Pereira Phillip, MD MD ps1
--- NOTE | 2018-01-10 00:37 | EDPHYS ---
Physician Documentation [facility] Name: Juan Diego Bolanos Age: 28 yrs Sex: Male : 1990 Arrival Date: 01/09/2018 Time: 23:18 Bed 7 Private MD: Munir Porras ED Physician Dannie Durham HPI: 01/09 23:38 This 28 yrs old Male presents to ER via Ambulatory with complaints of ps1 Headache. 23:38 The patient complains of pain to the left base of the skull and right base of the ps1 skull. The patient describes the headache as pounding, throbbing, unrelenting. Onset: The symptoms/episode began/occurred acutely, just prior to arrival. coital headache. No FND. NO history of aneurysm. . Historical: - Allergies: 23:27 No Known Allergies; la1 - PMHx: 23:27 Hypertension; GERD; la1 - Immunization history:: Adult Immunizations up to date. - Social history:: Smoking status: Patient/guardian denies using tobacco. - Ebola Screening: : No symptoms or risks identified at this time. ROS: 23:38 Constitutional: Negative for fever, chills, and weight loss, Eyes: Negative for injury, ps1 pain, redness, and discharge, Cardiovascular: Negative for chest pain, palpitations, and edema, Respiratory: Negative for shortness of breath, cough, wheezing, and pleuritic chest pain, Abdomen/GI: Negative for abdominal pain, nausea, vomiting, diarrhea, and constipation, MS/Extremity: Negative for injury and deformity, Skin: Negative for injury, rash, and discoloration. 23:38 Neuro: Positive for headache. Exam: 23:38 Constitutional: This is a well developed, well nourished patient who is awake, alert, ps1 and in no acute distress. Head/Face: Normocephalic, atraumatic. Eyes: Pupils equal round and reactive to light, extra-ocular motions intact. Lids and lashes normal. Conjunctiva and sclera are non-icteric and not injected. Chest/axilla: Normal chest wall appearance and motion. Nontender with no deformity. No lesions are appreciated. Cardiovascular: Regular rate and rhythm. No gallops, murmurs, or rubs. Normal PMI, no JVD. No pulse deficits. Respiratory: Lungs have equal breath sounds bilaterally, clear to auscultation and percussion. No rales, rhonchi or wheezes noted. No increased work of breathing, no retractions or nasal flaring. Abdomen/GI: Soft, non-tender, with normal bowel sounds. No distension or tympany. No guarding or rebound. No evidence of tenderness throughout. Skin: Warm, dry with normal turgor. Normal color with no rashes, no lesions, and no evidence of cellulitis. MS/ Extremity: Pulses equal, no cyanosis. Neurovascular intact. Full, normal range of motion. Neuro: Awake and alert, GCS 15, oriented to person, place, time, and situation. Cranial nerves II-XII grossly intact. Sensory grossly intact. Vital Signs: 23:27 BP 140 / 75; Pulse 80; Resp 16; Temp 97.0; Pulse Ox 98% on R/A; Weight 74.84 kg; Height la1 6 ft. 0 in. (182.88 cm); 01/10 00:31 BP 117 / 58; Pulse 61; Resp 16; Pulse Ox 99% ; bb 01/09 23:27 Body Mass Index 22.38 (74.84 kg, 182.88 cm) la1 [place] Coma Score: 01/09 23:30 Eye Response: spontaneous(4). Verbal Response: oriented(5). Motor Response: obeys bb commands(6). Total: 15. MDM: 23:41 Patient medically screened. ps1 01/10 00:38 Data reviewed: vital signs, nurses notes, radiologic studies, CT scan, CTA, and as a ps1 result, I will discharge patient. Counseling: I had a detailed discussion with the patient and/or guardian regarding: the historical points, exam findings, and any diagnostic results supporting the discharge/admit diagnosis, radiology results, to return to the emergency department if symptoms worsen or persist or if there are any questions or concerns that arise at home. 01/09 23:59 Order name: Comprehensive Metabolic Panel; Complete Time: 00:24 EDMS 01/09 23:59 Order name: CBC with Automated Diff EDMS 01/09 23:40 Order name: Head angio EDMS 01/09 23:44 Order name: Head Brain Wo Cont EDMS 01/09 23:59 Order name: Protime (+INR) EDMS 01/09 23:59 Order name: PTT, Activated Partial Thromb EDMS Administered Medications: 01/09 23:56 Drug: Reglan 10 mg Route: IVP; Site: right antecubital; 01/10 00:47 Follow up: Response: Marked relief of symptoms bb 01/09 23:56 Drug: Benadryl 25 mg {Note: given PO per verbal order Dr Durham.} Route: IVP; Site: Other; 01/10 00:47 Follow up: Response: Marked relief of symptoms bb Disposition: 01/10/18 00:37 Discharged to Home. Impression: post coital headache. - Condition is Stable. - Discharge Instructions: Migraine Headache. - Medication Reconciliation Form, Thank You Letter, Antibiotic Education, Prescription Opioid Use form. - Follow up: Munir Porras MD; When: As needed; Reason: Recheck today's complaints, Continuance of care, Re-evaluation by your physician. Follow up: Emergency Department; When: As needed; Reason: Worsening of condition. - Problem is new. - Symptoms have improved. Signatures: Dispatcher [employer] [facility] Skylar Dumas RN RN bb Higinio Morel RN RN la1 Dannie Durham MD MD ps1 Corrections: (The following items were deleted from the chart) 00:26 00:20 Head Brain Wo Cont+CT.RAD.BRZ ordered. [facility] 00:37 00:20 CBC without Diff+H.LAB.BRZ ordered. [facility] 00:37 00:20 COMPREHENSIVE METABOLIC PANEL+C.LAB.BRZ ordered. [facility] 00:37 00:20 PROTIME (+INR)+COAG.LAB.BRZ ordered. [facility] 00:37 00:20 PTT, ACTIVATED+COAG.LAB.BRZ ordered. [facility] 00:51 00:37 01/10/2018 00:37 Discharged to Home. Impression: post coital headache. Condition bb is Stable. Forms are Medication Reconciliation Form, Thank You Letter, Antibiotic Education, Prescription Opioid Use. Follow up: Munir Porras; When: As needed; Reason: Recheck today's complaints, Continuance of care, Re-evaluation by your physician. Follow up: Emergency Department; When: As needed; Reason: Worsening of condition. Problem is new. Symptoms have improved. ps1
--- NOTE | 2018-01-10 08:56 | RAD REPORT ---
EXAM DESCRIPTION: CT - Head Brain Wo Cont - 01/10/2018 3:50 am CLINICAL HISTORY: HEADACHE COMPARISON: No comparisons TECHNIQUE: All CT scans are performed using dose optimization technique as appropriate and may inclu de automated exposure control or mA/KV adjustment according to patient size. FINDINGS: No intracranial hemorrhage, hydrocephalus or extra-axial fluid collection.No areas of brai n edema or evidence of midline shift. The paranasal sinuses and mastoids are clear. The calvarium is intact. IMPRESSION: No acute intracranial abnormality.
--- NOTE | 2018-01-10 09:15 | RAD REPORT ---
EXAM DESCRIPTION: CT - Head angio - 01/10/2018 3:50 am CLINICAL HISTORY: headache COMPARISON: Head Brain Wo Cont dated 01/10/2018 TECHNIQUE: CT angiography of the head was performed with MIPs. All CT scans are performed using dose optimization technique as appropriate and may include automated exposure control or mA/KV adjustment according to patient size. FINDINGS: No evidence of aneurysm is detected. No flow-limiting stenosis or vascular malformation id entified. Antegrade flow is seen in the vertebral arteries. The vertebral arteries are codominant. The visualized dural venous sinuses are patent. IMPRESSION: No significant flow abnormality is detected.
== END 2018-01-10 00:51 | disposition home or self-care (01) ==
LOC: ER 23:16
DX: G44.82 Headache associated with sexual activity (principal)
CPT/HCPCS: 36415; 70450; 70496; 80053; 85025; 85610; 85730; 99284; J2765; Q9967

== ENCOUNTER 2018-05-23 09:19 | Day surgery (SDC) | payer OTHER ==
--- OUTSIDE RECORDS SUMMARY | 2018-05-23 09:26 | XMS REPORT ---
:1990 Author Organization eClinicalWorks Care Team Providers Name Role Phone Salomon Valentine Provider Role Unavailable Allergies, Adverse Reactions, Alerts Substance Reaction Event Type N.K.D.A. Info Not Available Non Drug Allergy Problems Problem Type Condition Code Onset Dates Condition Status Problem GERD without esophagitis K21.9 Active Problem HTN (hypertension), benign I10 Active Problem Immune thrombocytopenic purpura D69.3 Active Assessment Splenomegaly R16.1 Active Medications Medication Code System Code Instructions Start End Date Status Dosage Date Atenolol [facility] 81789162469 50 MG Orally Once Active 1 tablet a day Nexium ND 97719315318 20 MG Orally Once Active 1 capsule a day Results No Known Results Summary Purpose eClinicalWorks Submission
--- OUTSIDE RECORDS SUMMARY | 2018-05-23 09:26 | XMS REPORT ---
[...] Problem Immune thrombocytopenic purpura D69.3 Active Assessment Immune thrombocytopenic purpura D69.3 Active Medications Medication Code System Code Instructions Start End Date Status Dosage Date Nexium [facility] 14040219540 20 MG Orally Once Active 1 capsule a day Atenolol ND 86184948106 50 MG Orally Once Active 1 tablet a day Results No Known Results Summary Purpose eClinicalWorks Submission
--- OUTSIDE RECORDS SUMMARY | 2018-05-23 09:26 | XMS REPORT ---
:1990 Author Organization eClinicalWorks Care Team Providers Name Role Phone Senthil Counts Include [facility] Provider Role Unavailable Allergies, Adverse Reactions, Alerts Substance Reaction Event Type N.K.D.A. Info Not Available Non Drug Allergy Problems Problem Type Condition Code Onset Dates Condition Status Assessment HTN (hypertension), benign I10 Active Assessment Myalgia M79.10 Active Assessment Dermatitis L30.9 Active Assessment GERD without esophagitis K21.9 Active Problem GERD without esophagitis K21.9 Active Problem HTN (hypertension), benign I10 Active Problem Immune thrombocytopenic purpura D69.3 Active Assessment Spleen enlarged R16.1 Active Assessment Multiple joint pain M25.50 Active Assessment LUQ abdominal pain R10.12 Active Medications Medication Code System Code Instructions Start End Date Status Dosage Date Atenolol [facility] 35166663745 50 MG Orally Once Active 1 tablet a day Nexium [facility] 69183973971 20 MG Orally Once Active 1 capsule a day Results No Known Results Summary Purpose eClinicalWorks Submission
[2018-05-23] MEDS ORDERED: Ringers Lactate 1,000 ML IV ONE (09:49)
[2018-05-23] MEDS ORDERED: PROPOFOL 200 MG/20 ML VIAL IV ONE ×2 (11:51)
[2018-05-23] MEDS ORDERED: LIDOCAINE 1% MPF 5 ML VIAL ONE (11:51)
--- NOTE | 2018-05-23 12:10 | ENDO RPT ---
[address], [address] EGD PROCEDURE REPORT EXAM DATE: 05/23/2018 PATIENT NAME: Juan Diego Bolanos MR#: [id number] BIRTHDATE: 1990 ATTENDING: Salomon Valentine DR STATUS: outpatient STITCHER FEEDER: Aidee Goldberg RN, Munir Cook, and Griselda Cook INDICATIONS: The patient is a 28 yr old Male here for an EGD due to abdominal pain PROCEDURE PERFORMED: EGD with biopsy for H. pylori MEDICATIONS: Per Anesthesia. TOPICAL ANESTHETIC: none CONSENT: The patient understands the risks and benefits of the procedure and understands that these risks include, but are not limited to: sedation, allergic reaction, infection, perforation and/or bleeding. Alternative means of evaluation and treatment include, among others: physical exam, x-rays, and/or surgical intervention. The patient elects to proceed with this endoscopic procedure. DESCRIPTION OF PROCEDURE: During intra-op preparation period all mechanical medical equipment was checked for proper function. Hand hygiene and appropriate measures for infection prevention was taken. Procedure, possible complications, and alternatives including but not limited to the possibility of bleeding, perforation, tear, infection, sepsis, need for surgery, need for blood transfusion, and anesthesia related complications were explained to the patient. After the risks, benefits and alternatives of the procedure were thoroughly explained, Informed consent was verified, confirmed and timeout was successfully executed by the treatment team. The patient was placed in the left lateral position. The patient was anesthetized with topical anesthesia. Through the anesthetized oropharyngeal area, the scope was passed without any difficulty. The EC-[id number] ([id number]) and [id number] ([id number]) endoscope was introduced through the mouth and advanced to the second portion of the duodenum. Retroflexed views revealed no abnormalities. The gastroscope was then slowly withdrawn and removed. Mild gastritis was found at the pylorus. A biopsy for H. pylori was taken. ADVERSE EVENTS: There were no complications. IMPRESSIONS: Mild gastritis was found at the pylorus RECOMMENDATIONS: 1. await biopsy results 2. follow-up: office 2 week(s) 3. avoid NSAIDS REPEAT EXAM: Salomon Valentine DR eSigned: Salomon Valentine DR 05/23/2018 12:09 PM cc: CPT CODES: ICD9 CODES: PATIENT NAME: Luis Miguel Juan Diego DanicaToma MR#: [id number]
--- NOTE | 2018-05-23 12:12 | ENDO RPT ---
[address], [address] COLONOSCOPY PROCEDURE REPORT EXAM DATE: 05/23/2018 PATIENT NAME: Juan Diego Bolanos MR #: [id number] BIRTHDATE: 1990 ATTENDING: Salomon Valentine DR STATUS: outpatient FIELD RADIO TECHNICIAN: Munir Brandon JustSpotted INDICATIONS: The patient is a 28 yr old Male here for a colonoscopy due to bright red bleeding PROCEDURE PERFORMED: Colonoscopy with biopsy MEDICATIONS: Per Anesthesia. ESTIMATED BLOOD LOSS: None CONSENT: The patient understands the risks and benefits of the procedure and understands that these risks include, but are not limited to: sedation, allergic reaction, infection, perforation and/or bleeding. Alternative means of evaluation and treatment include, among others: physical exam, x-rays, and/or surgical intervention. The patient elects to proceed with this endoscopic procedure. DESCRIPTION OF PROCEDURE: During intra-op preparation period all mechanical medical equipment was checked for proper function. Hand hygiene and appropriate measures for infection prevention was taken. Procedure, possible complications, alternatives including, but not limited to possibility of bleeding, perforation, tear, infection, sepsis, need for surgery, need for blood transfusion, were explained to the patient. After the risks, benefits and alternatives of the procedure were thoroughly explained, Informed consent was verified, confirmed and timeout was successfully executed by the treatment team. The patient was placed in the left lateral position. A digital rectal exam was performed and revealed no abnormalities of the rectum. After appropriate level of anesthesia, the scope was passed. The EC-[id number] ([id number]) endoscope was introduced through the anus and advanced to the cecum, which was identified by both the appendix and ileocecal valve. The quality of the prep was good. The instrument was then slowly withdrawn as the colon was fully examined. Scope withdrawal time was 8 minutes. COLON FINDINGS: A normal appearing cecum, ileocecal valve, and appendiceal orifice were identified. the ascending, transverse, descending, sigmoid colon, and rectum appeared unremarkable. Multiple random biopsies were performed. Retroflexed views revealed no abnormalities. The scope was then completely withdrawn from the patient and the procedure terminated. ADVERSE EVENTS: There were no complications. IMPRESSIONS: A normal appearing cecum, ileocecal valve, and appendiceal orifice were identified. the ascending, transverse, descending, sigmoid colon, and rectum appeared unremarkable; multiple random biopsies were performed RECOMMENDATIONS: 1. avoid NSAIDS for 2 weeks 2. await biopsy results 3. fiber rich diet 4. follow-up: office 2 week(s) 5. Monitor for any evidence of rectal bleeding. RECALL: Salomon Valentine DR eSigned: Salomon Valentine DR 05/23/2018 12:12 PM cc: CPT CODES: ICD9 CODES: PATIENT NAME: Juan Diego Bolanos MR#: [id number]
== END 2018-05-23 12:45 | disposition home or self-care (01) ==
LOC: OR 09:19
PROVIDERS: ATTEND Surgery
PROC: 0DB78ZX Excision of Stomach, Pylorus, Via Natural or Artificial Opening Endoscopic, Diagnostic (ICD-10-PCS; 2018-05-23)
PROC: 0DBH8ZX Excision of Cecum, Via Natural or Artificial Opening Endoscopic, Diagnostic (ICD-10-PCS; principal; 2018-05-23 11:15)
PROC: 0DBG8ZX Excision of Left Large Intestine, Via Natural or Artificial Opening Endoscopic, Diagnostic (ICD-10-PCS; 2018-05-23 11:15)
DX: K29.50 Unspecified chronic gastritis without bleeding (principal); K21.0 Gastro-esophageal reflux disease with esophagitis; K62.5 Hemorrhage of anus and rectum; R16.1 Splenomegaly, not elsewhere classified; I10 Essential (primary) hypertension; Z82.3 Family history of stroke; Z82.49 Family history of ischemic heart disease and other diseases of the circulatory system
CPT/HCPCS: 88305; 88312; J2704

== ENCOUNTER 2018-06-26 00:11 | Emergency (ER) | payer OTHER ==
--- OUTSIDE RECORDS SUMMARY | 2018-06-26 00:13 | XMS REPORT ---
[...] Start End Date Status Dosage Date Nexium ND 70028003378 20 MG Orally Once Active 1 capsule a day Atenolol ND 39583646896 50 MG Orally Once Active 1 tablet a day Results No Known Results Summary Purpose eClinicalWorks Submission
--- OUTSIDE RECORDS SUMMARY | 2018-06-26 00:13 | XMS REPORT ---
:1990 Author Organization eClinicalWorks Care Team Providers Name Role Phone Senthil [facility] Provider Role Unavailable Allergies, Adverse Reactions, Alerts [...] Start End Date Status Dosage Date Atenolol [facility] 95371632529 50 MG Orally Once Active 1 tablet a day Nexium [facility] 24544459892 20 MG Orally Once Active 1 capsule a day Results No Known Results Summary Purpose eClinicalWorks Submission
--- OUTSIDE RECORDS SUMMARY | 2018-06-26 00:13 | XMS REPORT ---
[...] Start End Date Status Dosage Date Atenolol [facility] 73130828113 50 MG Orally Once Active 1 tablet a day Nexium ND 01910358935 20 MG Orally Once Active 1 capsule a day Results No Known Results Summary Purpose eClinicalWorks Submission
--- OUTSIDE RECORDS SUMMARY | 2018-06-26 00:13 | XMS REPORT ---
[...] Start End Date Status Dosage Date Nexium [facility] 70616908762 20 MG Orally Once Active 1 capsule a day Atenolol ND 89023495249 50 MG Orally Once Active 1 tablet a day Results No Known Results Summary Purpose eClinicalWorks Submission
--- OUTSIDE RECORDS SUMMARY | 2018-06-26 00:14 | XMS REPORT ---
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
--- OUTSIDE RECORDS SUMMARY | 2018-06-26 00:14 | XMS REPORT ---
:1990 Author Organization eClinicalWorks Care Team Providers Name Role Phone Salomon aVlentine Provider Role Unavailable Allergies, Adverse Reactions, Alerts Substance Reaction Event Type N.K.D.A. Info Not Available Non Drug Allergy Problems Problem Type Condition Code Onset Dates Condition Status Problem GERD without esophagitis K21.9 Active Problem HTN (hypertension), benign I10 Active Problem Immune thrombocytopenic purpura D69.3 Active Assessment Follow up Z09 Active Medications Medication Code System Code Instructions Start End Date Status Dosage Date Atenolol [facility] 39332791401 50 MG Orally Once Active 1 tablet a day Nexium ND 47292560144 20 MG Orally Once Active 1 capsule a day Results No Known Results Summary Purpose eClinicalWorks Submission
[2018-06-26] MEDS ORDERED: MORPHINE 4 MG/ML SYR ONE (00:58)
[2018-06-26] MEDS ORDERED: ONDANSETRON 4 MG/2 ML VIAL ONE (00:58)
[2018-06-26 01:07] LABS: Absolute Monocytes 0.7 K/uL (0.1-1.3); Absolute Neutrophil 3.5 K/uL (1.8-8.0); Basophils % 0.6 % (0-1.3); Eosinophils % 1.4 % (0-4.4); Hematocrit 43.5 % (39.6-49.0); Lymphocytes % 40.8 % (15.3-44.8); Monocytes % 9.6 % (3.3-12.3); RBC Red Blood Cell Count 5.02 M/uL (4.33-5.43)
[2018-06-26 01:09] LABS: Protime INR 0.94
[2018-06-26 01:25] LABS: ALT/SGPT 32 U/L (12-78); AST/SGOT 12 U/L (15-37); Alkaline Phosphatase 56 U/L (45-117); BUN Blood Urea Nitrogen 21 mg/dL (7-18); Bicarbonate 28 mmol/L (21-32); Bilirubin Direct < 0.1 mg/dL (0-0.2); Bilirubin Total 0.3 mg/dL (0.2-1.0); Glucose Level 110 mg/dL (74-106); NT PRO-BNP 60 pg/mL (<125); Potassium 3.5 mmol/L (3.5-5.1); Protein, Total 7.2 g/dL (6.4-8.2); Sodium Level 142 mmol/L (136-145); Troponin (Emerg Dept Use Only) < 0.02 ng/mL (0.0-0.045)
--- NOTE | 2018-06-26 03:00 | ER ---
Nurse's Notes [facility] Name: Juan Diego Bolanos Age: 28 yrs Sex: Male : 1990 Arrival Date: 06/26/2018 Time: 00:12 Bed 16 Private MD: Diagnosis: Pain in thoracic spine;Other chest pain Presentation: 06/26 00:24 Presenting complaint: Patient states: he started having severe back pain about 60 mins bb ago the pain is constant 9/10 and is between his shoulder blades he has had similar symptoms in the past but they came and went briefly pt denies nausea or vomiting. Transition of care: patient was not received from another setting of care. Onset of symptoms was June 26, 2018. Risk Assessment: Do you want to hurt yourself or someone else? Patient reports no desire to harm self or others. Initial Sepsis Screen: Does the patient meet any 2 criteria? No. Patient's initial sepsis screen is negative. Does the patient have a suspected source of infection? No. Patient's initial sepsis screen is negative. Care prior to arrival: None. 00:24 Method Of Arrival: Ambulatory bb 00:24 Acuity: ÁNGEL 3 bb Historical: - Allergies: 00:26 No Known Allergies; bb - Home Meds: 00:26 atenolol 50 mg Oral tab 1 tab once daily [Active]; bb - PMHx: 00:26 Hypertension; GERD; bb - PSHx: 00:26 Cholecystectomy; bb - Immunization history:: Adult Immunizations up to date. - Social history:: Smoking status: Patient/guardian denies using tobacco, Patient uses alcohol, but reports only rare drinking. Patient/guardian denies using street drugs. - Ebola Screening: : No symptoms or risks identified at this time. Screenin:30 Abuse screen: Denies threats or abuse. Denies injuries from another. Nutritional aa1 screening: No deficits noted. Tuberculosis screening: No symptoms or risk factors identified. Fall Risk None identified. Assessment: 00:30 General: Appears in no apparent distress. uncomfortable, Behavior is calm, cooperative, aa1 appropriate for age. Pain: Complains of pain in thoracic area Pain radiates to chest Pain currently is 9 out of 10 on a pain scale. Quality of pain is described as stabbing, Pain began suddenly, Is continuous. Neuro: Level of Consciousness is awake, alert, obeys commands, Oriented to person, place, time, situation, Moves all extremities. Full function Gait is steady. Cardiovascular: Denies diaphoresis, nausea, palpitations, shortness of breath, Heart tones S1 S2 present Capillary refill < 3 seconds JVD is absent Patient's skin is warm and dry. Rhythm is regular. Respiratory: Airway is patent Respiratory effort is even, unlabored, Respiratory pattern is regular, symmetrical. GI: No signs and/or symptoms were reported involving the gastrointestinal system. : No signs and/or symptoms were reported regarding the genitourinary system. EENT: No signs and/or symptoms were reported regarding the EENT system. Derm: Skin is intact, is healthy with good turgor, Skin is pink, warm \T\ dry. Musculoskeletal: Circulation, motion, and sensation intact. Capillary refill < 3 seconds, Range of motion: intact in all extremities. 02:20 Reassessment: Patient appears in no apparent distress at this time. Patient and/or ak1 family updated on plan of care and expected duration. Pain level reassessed. Patient is alert, oriented x 3, equal unlabored respirations, skin warm/dry/pink. pt resting comfortably. Vital Signs: 00:26 BP 132 / 83 RA Sitting (auto/reg); Pulse 71; Resp 18 S; Temp 98(TE); Pulse Ox 100% on bb R/A; Weight 77.11 kg (R); Height 6 ft. 0 in. (182.88 cm) (R); Pain 9/10; 00:26 BP 133 / 72 LA Sitting (auto/reg); bb 01:19 BP 124 / 76; Pulse 56; Resp 18; Pulse Ox 98% on R/A; aa1 02:49 BP 103 / 53; Pulse 73; Resp 16; Pulse Ox 98% on R/A; Pain 2/10; ak1 00:26 Body Mass Index 23.06 (77.11 kg, 182.88 cm) bb ED Course: 00:12 Patient arrived in ED. ds1 00:14 Ovidio Baird PA is PHCP. jmm 00:15 Gurvinder Solorzano MD is Attending Physician. jmm 00:18 Linda Hung RN is Primary Nurse. aa1 00:19 Patient has correct armband on for positive identification. Placed in gown. Bed in low aa1 position. Call light in reach. Pulse ox on. NIBP on. 00:25 Triage completed. bb 00:26 Arm band placed on Patient placed in an exam room, on a stretcher, on pulse oximetry. bb 00:30 Patient maintains SpO2 saturation greater than 95% on room air. aa1 00:50 EKG done, by ED staff, reviewed by Gurvinder Solorzano MD. aa1 00:51 XRAY Chest (1 view) In Process Unspecified. EDMS 00:53 Initial lab(s) drawn, by me, sent to lab. Inserted saline lock: 20 gauge in left aa1 antecubital area, using aseptic technique. Blood collected. 02:00 Report given to Gabriela Mckinney RN. aa1 02:20 Gabriela Mckinney, RN is Primary Nurse. ak1 02:21 CT Aorta for Dissection In Process Unspecified. EDMS 02:59 Lopez Kent MD is Referral Physician. [facility] 03:03 No provider procedures requiring assistance completed. IV discontinued, intact, ak1 bleeding controlled, No redness/swelling at site. Pressure dressing applied. Administered Medications: 00:55 Drug: Zofran 4 mg Route: IVP; Site: left antecubital; aa1 03:07 Follow up: Response: No adverse reaction ak1 00:57 Drug: morphine 4 mg Route: IVP; Site: left antecubital; aa1 03:07 Follow up: Response: No adverse reaction ak1 Outcome: 02:59 Discharge ordered by MD. [facility] 03:03 Discharged to home ambulatory. ak1 03:03 Condition: good 03:03 Discharge instructions given to patient, Instructed on discharge instructions, follow up and referral plans. Demonstrated understanding of instructions, follow-up care. 03:11 Patient left the ED. ak1 Signatures: Dispatcher [employer] EDMS Linda Hung RN RN aa1 Ovidio Baird PA PA jmm Sanford, Demi ds1 Skylar Dumas RN RN Gabriela Roth RN RN ak1
--- NOTE | 2018-06-26 03:00 | EDPHYS ---
Physician Documentation [facility] Name: Juan Diego Bolanos Age: 28 yrs Sex: Male : 1990 Arrival Date: 06/26/2018 Time: 00:12 Bed 16 Private MD: ED Physician Gurvinder Solorzano HPI: 06/26 00:35 This 28 yrs old Male presents to ER via Ambulatory with complaints of Back jmm Pain. 00:35 The patient presents with pain that is acute. Onset: The symptoms/episode jmm began/occurred acutely, 1 hour(s) ago. The pain radiates. 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 Patient states having similar episodes in the past but never this intense. Patient states the pain radiates to the chest. Patient denies shortness of breath. . Historical: - Allergies: 00:26 No Known Allergies; bb - Home Meds: 00:26 atenolol 50 mg Oral tab 1 tab once daily [Active]; bb - PMHx: 00:26 Hypertension; GERD; bb - PSHx: 00:26 Cholecystectomy; bb - Immunization history:: Adult Immunizations up to date. - Social history:: Smoking status: Patient/guardian denies using tobacco, Patient uses alcohol, but reports only rare drinking. Patient/guardian denies using street drugs. - Ebola Screening: : No symptoms or risks identified at this time. ROS: 00:35 Constitutional: Negative for fever, chills, and weight loss. jmm 00:35 Cardiovascular: Positive for chest pain. 00:35 Back: Positive for pain at rest. 00:35 All other systems are negative. Exam: 00:35 Head/Face: atraumatic. Eyes: EOMI, no conjunctival erythema appreciated ENT: Moist jmm Mucus Membranes Neck: Trachea midline, Supple Chest/axilla: Normal chest wall appearance and motion. 00:35 Constitutional: The patient appears alert, awake, uncomfortable. 00:35 Cardiovascular: Rate: normal, Rhythm: regular. 00:35 Respiratory: the patient does not display signs of respiratory distress, Respirations: normal, Breath sounds: are clear throughout. 00:35 Abdomen/GI: Inspection: abdomen appears normal, Bowel sounds: normal, Palpation: abdomen is soft and non-tender, in all quadrants. 00:35 Back: ROM is normal, pain localized to the thoracic region, non reproduce able on palpation. 00:35 : CVA tenderness, is absent. 00:35 Musculoskeletal/extremity: ROM: no acute changes. 00:35 Skin: Appearance: Color: normal in color. 00:35 Neuro: Orientation: is normal, Mentation: is normal, Memory: is normal. Vital Signs: 00:26 BP 132 / 83 RA Sitting (auto/reg); Pulse 71; Resp 18 S; Temp 98(TE); Pulse Ox 100% on bb R/A; Weight 77.11 kg (R); Height 6 ft. 0 in. (182.88 cm) (R); Pain 9/10; 00:26 BP 133 / 72 LA Sitting (auto/reg); bb 01:19 BP 124 / 76; Pulse 56; Resp 18; Pulse Ox 98% on R/A; aa1 02:49 BP 103 / 53; Pulse 73; Resp 16; Pulse Ox 98% on R/A; Pain 2/10; ak1 00:26 Body Mass Index 23.06 (77.11 kg, 182.88 cm) bb MDM: 00:35 Patient medically screened. [facility] 02:58 Data reviewed: vital signs, nurses notes. Counseling: I had a detailed discussion with avery the patient and/or guardian regarding: the historical points, exam findings, and any diagnostic results supporting the discharge/admit diagnosis, lab results, radiology results, the need for outpatient follow up, to return to the emergency department if symptoms worsen or persist or if there are any questions or concerns that arise at home. ED course: Patient's pain is relieved in the ED. CTA chest negative. patient is low risk for acs. patient is advised to follow up with cardio for further evaluation. patient is otherwise given strict return precautions. patient understood and agrees with the plan of care. . 06/26 00:36 Order name: Basic Metabolic Panel; Complete Time: [facility] 06/26 00:36 Order name: CBC with Diff; Complete Time: [facility] 06/26 00:36 Order name: LFT's; Complete Time: [facility] 06/26 00:36 Order name: Magnesium; Complete Time: [facility] 06/26 00:36 Order name: NT PRO-BNP; Complete Time: 01:27 [facility] 06/26 00:36 Order name: PT-INR; Complete Time: 01:27 [facility] 06/26 00:36 Order name: Troponin (emerg Dept Use Only); Complete Time: 01:27 [facility] 06/26 00:36 Order name: XRAY Chest (1 view) [facility] 06/26 00:36 Order name: EKG; Complete Time: 00:37 [facility] 06/26 00:36 Order name: Cardiac monitoring; Complete Time: 01:10 [facility] 06/26 00:36 Order name: EKG - Nurse/Tech; Complete Time: 01:11 [facility] 06/26 00:36 Order name: CT Aorta for Dissection [facility] 06/26 00:36 Order name: IV Saline Lock; Complete Time: 01:11 [facility] 06/26 00:36 Order name: Labs collected and sent; Complete Time: 01:12 [facility] 06/26 00:36 Order name: O2 Per Protocol; Complete Time: 00:39 [facility] 06/26 00:36 Order name: O2 Sat Monitoring; Complete Time: 00:39 [facility] Administered Medications: 00:55 Drug: Zofran 4 mg Route: IVP; Site: left antecubital; aa1 03:07 Follow up: Response: No adverse reaction ak1 00:57 Drug: morphine 4 mg Route: IVP; Site: left antecubital; aa1 03:07 Follow up: Response: No adverse reaction ak1 Disposition: 06/26/18 02:59 Discharged to Home. Impression: Pain in thoracic spine, Other chest pain. - Condition is Stable. - Discharge Instructions: Back Pain, Adult, Nonspecific Chest Pain. - Medication Reconciliation Form, Thank You Letter, Antibiotic Education, Prescription Opioid Use form. - Follow up: Lopez Kent MD; When: 2 - 3 days; Reason: Recheck today's complaints, Continuance of care, Re-evaluation by your physician. Addendum: 06/27/2018 07:22 Co-signature as Attending Physician, Gurvinder Solorzano MD I agree with the assessment and t w4 plan of care. Signatures: Dispatcher [employer] Linda Garcia RN RN aa1 Ovidio Baird PA PA Skylar Kelly RN RN bb Gabriela Mckinney RN RN ak1 Gurvinder Solorzano, MD ROMAN tw4 Corrections: (The following items were deleted from the chart) 06/26 03:11 02:59 06/26/2018 02:59 Discharged to Home. Impression: Pain in thoracic spine; Other ak1 chest pain. Condition is Stable. Forms are Medication Reconciliation Form, Thank You Letter, Antibiotic Education, Prescription Opioid Use. Follow up: Lopez Kent; When: 2 - 3 days; Reason: Recheck today's complaints, Continuance of care, Re-evaluation by your physician. avery
--- NOTE | 2018-06-26 08:30 | RAD REPORT ---
EXAM DESCRIPTION: [place] Single View06/26/2018 12:51 am CLINICAL HISTORY: Chest pain COMPARISON: October 2017 FINDINGS: The lungs appear clear of acute infiltrate. The heart is normal size IMPRESSION: No acute abnormalities displayed
--- NOTE | 2018-06-26 11:37 | RAD REPORT ---
EXAM DESCRIPTION: CT - Angio Aorta For Dissection - 06/26/2018 5:14 am CLINICAL HISTORY: The patient is 28 years old and is Male; thoracic back pain TECHNIQUE: Axial computed tomography images of the chest, abdomen and pelvis with intravenous contra st during the arterial phase of enhancement. Sagittal and coronal reformatted images were created a nd reviewed. This CT exam was performed using one or more of the following dose reduction technique s: automated exposure control, adjustment of the mA and/or kV according to patient size, and/or use of iterative reconstruction technique. COMPARISON: None. FINDINGS: VASCULATURE: AORTA: No acute findings. No aortic aneurysm. No dissection. PULMONARY ARTERIES: Unremarkable as visualized. No pulmonary embolism is identified. GREAT VESSELS OF AORTIC ARCH: No acute findings. No dissection. No arterial occlusion or signi ficant stenosis. CELIAC TRUNK AND MESENTERIC ARTERIES: No acute findings. No occlusion or significant stenosis. RENAL ARTERIES: No acute findings. No occlusion or significant stenosis. ILIAC ARTERIES: No acute findings. No occlusion or significant stenosis. CHEST: LUNGS: Unremarkable. No mass. No consolidation. PLEURAL SPACE: No focal consolidation, pleural effusion or pneumothorax. HEART: Unremarkable. No cardiomegaly. No significant pericardial effusion. THYROID: Visualized thyroid is unremarkable. ABDOMEN: LIVER: Unremarkable. No mass. GALLBLADDER AND BILE DUCTS: Prior cholecystectomy. No ductal dilation. PANCREAS: Unremarkable. No ductal dilation. No mass. SPLEEN: Unremarkable. No splenomegaly. ADRENALS: Unremarkable. No mass. KIDNEYS AND URETERS: Subcentimeter right renal cyst posteriorly. No hydronephrosis. No radiopaque stone. No solid mass. STOMACH AND BOWEL: Mild stool burden. No obstruction. No mucosal thickening. PELVIS: APPENDIX: The appendix is seen and is within normal limits BLADDER: Unremarkable. No mass. REPRODUCTIVE: Unremarkable as visualized. CHEST, ABDOMEN and PELVIS: INTRAPERITONEAL SPACE: Unremarkable. No significant fluid collection. No free air. BONES/JOINTS: No acute fracture. No dislocation. SOFT TISSUES: Unremarkable. LYMPH NODES: Unremarkable. No enlarged lymph nodes. IMPRESSION: 1. No aortic dissection or aneurysm. 2. No acute intrathoracic, abdominal or pelvic abnormality. 3. Prior cholecystectomy. Electronically signed by: Dallas Butler DO 06/26/2018 2:32 AM CDT Due to temporary technical issues with the PACS/Fluency reporting system, reports are being signed by the in house radiologist as a courtesy to ensure prompt reporting. The interpreting radiologist is f ully responsible for the content of the report.
== END 2018-06-26 03:11 | disposition home or self-care (01) ==
LOC: ER 00:11
DX: R07.89 Other chest pain (principal); I10 Essential (primary) hypertension; K21.9 Gastro-esophageal reflux disease without esophagitis
CPT/HCPCS: 36415; 71045; 71275; 74175; 80048; 80076; 83735; 83880; 84484; 85025; 85610; 93005; 96374; 96375; 99284; J2405; Q9967

== ENCOUNTER 2018-07-03 15:18 | Emergency (ER) | payer OTHER ==
--- OUTSIDE RECORDS SUMMARY | 2018-07-03 15:20 | XMS REPORT ---
[...] Start End Date Status Dosage Date Nexium [facility] 53476784839 20 MG Orally Once Active 1 capsule a day Atenolol ND 37709455520 50 MG Orally Once Active 1 tablet a day Results No Known Results Summary Purpose eClinicalWorks Submission
--- OUTSIDE RECORDS SUMMARY | 2018-07-03 15:20 | XMS REPORT ---
[...] Start End Date Status Dosage Date Atenolol [facility] 45352593752 50 MG Orally Once Active 1 tablet a day Nexium ND 91810181965 20 MG Orally Once Active 1 capsule a day Results No Known Results Summary Purpose eClinicalWorks Submission
--- OUTSIDE RECORDS SUMMARY | 2018-07-03 15:20 | XMS REPORT ---
[...] End Date Status Dosage Date Nexium ND 67488636311 20 MG Orally Once Active 1 capsule a day Atenolol ND 93108282187 50 MG Orally Once Active 1 tablet a day Results No Known Results Summary Purpose eClinicalWorks Submission
--- OUTSIDE RECORDS SUMMARY | 2018-07-03 15:20 | XMS REPORT ---
[...] Start End Date Status Dosage Date Atenolol [facility] 19697669560 50 MG Orally Once Active 1 tablet a day Nexium ND 43302924758 20 MG Orally Once Active 1 capsule a day Results No Known Results Summary Purpose eClinicalWorks Submission
--- OUTSIDE RECORDS SUMMARY | 2018-07-03 15:20 | XMS REPORT ---
:1990 Author Organization eClinicalWorks Care Team Providers Name Role Phone Senthil [facility] Provider Role Unavailable Allergies, Adverse Reactions, Alerts Substance Reaction Event Type N.K.D.A. 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
--- OUTSIDE RECORDS SUMMARY | 2018-07-03 15:20 | XMS REPORT ---
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
--- OUTSIDE RECORDS SUMMARY | 2018-07-03 15:20 | XMS REPORT ---
:1990 Author Organization eClinicalWorks Care Team Providers Name Role Phone Senthil [facility] Provider Role Unavailable Allergies, Adverse Reactions, [...] End Date Status Dosage Date Atenolol [facility] 50180228028 50 MG Orally Once Active 1 tablet a day Nexium [facility] 66940164374 20 MG Orally Once Active 1 capsule a day Results No Known Results Summary Purpose eClinicalWorks Submission
[2018-07-03 16:18] LABS: Absolute Lymphocytes (CBC) 2.4 K/uL (0.7-4.9); Absolute Monocytes 0.6 K/uL (0.1-1.3); Absolute Neutrophil 3.9 K/uL (1.8-8.0); Basophils % 0.8 % (0-1.3); Eosinophils % 2.1 % (0-4.4); Hematocrit 44.5 % (39.6-49.0); Lymphocytes % 33.6 % (15.3-44.8); MPV 8.5 fL (7.6-11.3); Monocytes % 8.5 % (3.3-12.3); RBC Red Blood Cell Count 5.05 M/uL (4.33-5.43)
[2018-07-03 16:32] LABS: Protime INR 0.97
--- NOTE | 2018-07-03 18:03 | RAD REPORT ---
EXAM DESCRIPTION: US - Extrem Venous W Compress [place] - 07/03/2018 5:54 pm CLINICAL HISTORY: Bilateral arm pain COMPARISON: None. TECHNIQUE: Real-time sonographic evaluation of the bilateral upper extremity deep venous systems was performed. FINDINGS: Normal compressibility, flow augmentation, phasic flow and spontaneous flow are identified in the bilateral upper extremity deep venous system. No intraluminal filling defects seen. Internal jugular and subclavian veins are normal as well. IMPRESSION: No DVT in the bilateral upper extremities.
--- NOTE | 2018-07-03 18:09 | RAD REPORT ---
EXAM DESCRIPTION: US - Upper Ext Artery Bilateral - 07/03/2018 5:54 pm CLINICAL HISTORY: Bilateral cold upper extremities COMPARISON: None. TECHNIQUE: Delete select Waveforms and velocities were obtained along the length of each upper extre mity. Visual inspection of the lower extremity arterial tree performed. FINDINGS: No occlusion or focal flow restricting lesion identifiable. No measurable atherosclerotic change in the hsu of the arterial tree. Right subclavian peak systolic velocity was 154 cm sec with the left subclavian 131 cm/second. Axilla ry velocity was 150 cm/second on the right and 128 cm/second on the left. Mid brachial artery velocit y was 115 cm/second on the right and 151 cm/second on the left. Radial artery velocity was 37 cm/seco nd on the right and 43 cm/second on the left. Ulnar velocity was 43 cm/second on the right and 32 cm/ second on the left. Triphasic waveform patterns were seen in each upper extremity to just proximal to the wrist. The bilateral radial and ulnar artery waveforms were monophasic. IMPRESSION: On visual inspection there is no occlusion or focal flow restricting lesion. Vessels ove rall do not appear to be abnormally narrowed. Waveforms were monophasic at the wrist and triphasic more proximally. No specific abnormality found t o explain cold extremities.
--- NOTE | 2018-07-03 18:16 | ER ---
Nurse's Notes [facility] Name: Juan Diego Bolanos Age: 28 yrs Sex: Male : 1990 Arrival Date: 07/03/2018 Time: 15:19 Bed 10 Private MD: Rigoberto Ndiaye Diagnosis: Intermittent swelling of hands Presentation: 07/03 15:31 Presenting complaint: Patient states: "my hands have been getting puffy and some aa5 discoloration to my fingers and to my nails". Pt reports symptoms began 1 week ago and reports symptoms last for hours at a time. Transition of care: patient was not received from another setting of care. Onset of symptoms was June 2018. Risk Assessment: Do you want to hurt yourself or someone else? Patient reports no desire to harm self or others. Initial Sepsis Screen: Does the patient meet any 2 criteria? No. Patient's initial sepsis screen is negative. Does the patient have a suspected source of infection? No. Patient's initial sepsis screen is negative. Care prior to arrival: None. 15:31 Method Of Arrival: Ambulatory aa5 15:31 Acuity: ÁNGEL 3 aa5 Historical: - Allergies: 15:33 No Known Allergies; aa5 - Home Meds: 15:33 atenolol 50 mg Oral tab 1 tab once daily [Active]; Nexium 20 mg Oral cpDR 1 cap once aa5 daily [Active]; - PMHx: 15:33 GERD; Hypertension; enlarged spleen; aa5 - PSHx: 15:33 Cholecystectomy; aa5 - Immunization history:: Adult Immunizations up to date. - Social history:: Smoking status: Patient/guardian denies using tobacco, Patient/guardian denies using alcohol. - Ebola Screening: : No symptoms or risks identified at this time. Screenin:06 Abuse screen: Denies threats or abuse. Denies injuries from another. Nutritional mg2 screening: No deficits noted. Tuberculosis screening: No symptoms or risk factors identified. Fall Risk IV access (20 points). Assessment: 16:10 General: Appears in no apparent distress. comfortable, Behavior is calm, cooperative. mg2 Pain: Denies pain. Neuro: Level of Consciousness is awake, alert, obeys commands, Oriented to person, place, time, situation. Cardiovascular: Capillary refill < 3 seconds Patient's skin is warm and dry. Respiratory: Airway is patent Respiratory effort is even, unlabored, Respiratory pattern is regular, symmetrical. GI: No signs and/or symptoms were reported involving the gastrointestinal system. : No signs and/or symptoms were reported regarding the genitourinary system. EENT: No signs and/or symptoms were reported regarding the EENT system. Derm: Skin is intact, is healthy with good turgor, Skin is pink, warm \\T\\ dry. normal. Musculoskeletal: Circulation, motion, and sensation intact. Capillary refill < 3 seconds, Swelling present in right hand and left hand. Vital Signs: 15:33 BP 157 / 90; Pulse 66; Resp 18 S; Temp 98.3(TE); Pulse Ox 100% on R/A; Weight 77.11 kg aa5 (R); Height 6 ft. 0 in. (182.88 cm) (R); 16:04 BP 145 / 91 RA Sitting (auto/reg); Pulse 72; Resp 18; Pulse Ox 100% ; mg2 16:04 BP 133 / 81 LA Sitting (auto/reg); Pulse 72; Resp 18; Pulse Ox 100% on R/A; mg2 17:00 BP 136 / 71; Pulse 70; Resp 18; Pulse Ox 100% on R/A; mg2 18:36 BP 133 / 78; Pulse 71; Resp 18; Pulse Ox 100% on R/A; Pain 0/10; mg2 15:33 Body Mass Index 23.06 (77.11 kg, 182.88 cm) aa5 ED Course: 15:19 Patient arrived in ED. as 15:20 Rigoberto Ndiaye DO is Private Physician. as 15:29 [facility] Jeffries [facility]C [facility] kb 15:29 Benigno Chang MD is Attending Physician. kb 15:31 Arm band placed on. aa5 15:32 Triage completed. aa5 15:42 Chavo Smiley, YVONNE is Primary Nurse. mg2 16:05 No provider procedures requiring assistance completed. Inserted saline lock: 20 gauge mg2 in right antecubital area, using aseptic technique. Blood collected. 16:11 Patient has correct armband on for positive identification. mg2 16:42 EKG done, by histotechnologist. reviewed by Elma BRIGHT. sm3 17:54 US Extremity Venous W Compression Mich In Process Unspecified. EDMS 17:54 Upper Ext Artery Bilateral In Process Unspecified. EDMS 18:35 IV discontinued, intact, bleeding controlled, No redness/swelling at site. Pressure mg2 dressing applied. Administered Medications: No medications were administered Outcome: 18:16 Discharge ordered by . kevin 18:35 Discharged to home ambulatory, with family. mg2 18:35 Condition: stable 18:35 Discharge instructions given to patient, family, Instructed on discharge instructions, follow up and referral plans. Demonstrated understanding of instructions, follow-up care. 18:36 Patient left the ED. mg2 Signatures: Dispatcher [employer] EDMS Elma Jeffries, APPOINTMENT SETTER-C APPOINTMENT SETTER-Senait Tee Audri, RN RN aa5 Chavo Smiley RN RN mg2 Barb Cuevas 3
--- NOTE | 2018-07-03 18:16 | EDPHYS ---
Physician Documentation [facility] Name: Juan Diego Bolanos Age: 28 yrs Sex: Male : 1990 Arrival Date: 07/03/2018 Time: 15:19 Bed 10 Private MD: Rigoberto Ndiaye ED Physician Benigno Chang HPI: 07/03 16:28 This 28 yrs old Male presents to ER via Ambulatory with complaints of Hand kb Swelling. 16:28 The patient or guardian reports swelling, discoloration. The complaints affect the left kb hand diffusely, right hand diffusely. Context: resulted from an unknown cause. Onset: The symptoms/episode began/occurred 1 week(s) ago. Modifying factors: The symptoms are alleviated by nothing, the symptoms are aggravated by nothing. Associated signs and symptoms: The patient has no apparent associated signs or symptoms. Severity of symptoms: At their worst the symptoms were mild, moderate, in the emergency department the symptoms are unchanged. The patient has not experienced similar symptoms in the past. The patient has been recently seen by a physician: the patient's primary care provider, with similar presenting complaints, and was sent to the [facility] Emergency Department for further evaluation. Pt states he has been noticing intermittent swelling and discoloration to bilateral hands for a week. States it could have been going on longer than that, but he just started noticing it a week ago. Discoloration is redness to dorsal aspect of hands and some cyanosis to nails. Denies chest pain, shortness of breath or any other symptoms. Historical: - Allergies: 15:33 No Known Allergies; aa5 - Home Meds: 15:33 atenolol 50 mg Oral tab 1 tab once daily [Active]; Nexium 20 mg Oral cpDR 1 cap once aa5 daily [Active]; - PMHx: 15:33 GERD; Hypertension; enlarged spleen; aa5 - PSHx: 15:33 Cholecystectomy; aa5 - Immunization history:: Adult Immunizations up to date. - Social history:: Smoking status: Patient/guardian denies using tobacco, Patient/guardian denies using alcohol. - Ebola Screening: : No symptoms or risks identified at this time. ROS: 16:26 Constitutional: Negative for fever, chills, and weight loss, Cardiovascular: Negative kb for chest pain, palpitations, and edema, Respiratory: Negative for shortness of breath, cough, wheezing, and pleuritic chest pain, Abdomen/GI: Negative for abdominal pain, nausea, vomiting, diarrhea, and constipation, Back: Negative for injury and pain, : Negative for injury, bleeding, discharge, and swelling, MS/Extremity: Negative for injury and deformity, Neuro: Negative for headache, weakness, numbness, tingling, and seizure. 16:26 Skin: Positive for discoloration, swelling, of the right hand and left hand. Exam: 16:27 Constitutional: This is a well developed, well nourished patient who is awake, alert, kb and in no acute distress. Head/Face: Normocephalic, atraumatic. Neck: Trachea midline, no thyromegaly or masses palpated, and no cervical lymphadenopathy. Supple, full range of motion without nuchal rigidity, or vertebral point tenderness. No Meningismus. Chest/axilla: Normal chest wall appearance and motion. Nontender with no deformity. No lesions are appreciated. Cardiovascular: Regular rate and rhythm with a normal S1 and S2. No gallops, murmurs, or rubs. Normal PMI, no JVD. No pulse deficits. Respiratory: Lungs have equal breath sounds bilaterally, clear to auscultation and percussion. No rales, rhonchi or wheezes noted. No increased work of breathing, no retractions or nasal flaring. Abdomen/GI: Soft, non-tender, with normal bowel sounds. No distension or tympany. No guarding or rebound. No evidence of tenderness throughout. Neuro: Awake and alert, GCS 15, oriented to person, place, time, and situation. Cranial nerves II-XII grossly intact. Motor strength 5/5 in all extremities. Sensory grossly intact. Cerebellar exam normal. Normal gait. 16:27 Musculoskeletal/extremity: Extremities: grossly normal except: noted in the left hand and right hand: swelling, ROM: intact in all extremities, Pulses: are normal with no appreciated deficits, Perfusion: the patient is normally perfused throughout, pink, warm, Perfusion: the extremity is pink, cool, Sensation intact. 16:45 ECG was reviewed by the Attending Physician. kb Vital Signs: 15:33 BP 157 / 90; Pulse 66; Resp 18 S; Temp 98.3(TE); Pulse Ox 100% on R/A; Weight 77.11 kg aa5 (R); Height 6 ft. 0 in. (182.88 cm) (R); 16:04 BP 145 / 91 RA Sitting (auto/reg); Pulse 72; Resp 18; Pulse Ox 100% ; mg2 16:04 BP 133 / 81 LA Sitting (auto/reg); Pulse 72; Resp 18; Pulse Ox 100% on R/A; mg2 17:00 BP 136 / 71; Pulse 70; Resp 18; Pulse Ox 100% on R/A; mg2 18:36 BP 133 / 78; Pulse 71; Resp 18; Pulse Ox 100% on R/A; Pain 0/10; mg2 15:33 Body Mass Index 23.06 (77.11 kg, 182.88 cm) aa5 MDM: 15:35 Patient medically screened. kb 16:27 Data reviewed: vital signs, nurses notes. Data interpreted: Pulse oximetry: on room air kb is 100 %. Interpretation: normal. 16:38 ED course: Had long discussion with patient and family, I feel like he has been having rn a systemic problem over last 1-2 years, possible connective tissue disorder/rheumatologic problem/vasculitis. Will rule out acute vascular problem today, and urged to f/u again with rheum and read up more on systemic syndromes. . 18:12 Counseling: I had a detailed discussion with the patient and/or guardian regarding: the kb historical points, exam findings, and any diagnostic results supporting the discharge/admit diagnosis, lab results, radiology results, the need for outpatient follow up, a family practitioner, to return to the emergency department if symptoms worsen or persist or if there are any questions or concerns that arise at home. 07/03 15:53 Order name: CBC with Diff; Complete Time: 16:25 kb 07/03 15:53 Order name: Basic Metabolic Panel; Complete Time: 16:33 kb 07/03 15:53 Order name: Protime (+inr); Complete Time: 16:33 kb 07/03 15:53 Order name: Ptt, Activated; Complete Time: 16:33 kb 07/03 15:53 Order name: US Extremity Venous W Compression Mich; Complete Time: 18:05 kb 07/03 16:02 Order name: Upper Ext Artery Bilateral; Complete Time: 18:12 EDMS 07/03 15:53 Order name: Bilateral blood pressure; Complete Time: 16:05 kb 07/03 15:59 Order name: EKG; Complete Time: 15:59 kb 04 15:59 Order name: EKG - Nurse/Tech; Complete Time: 16:45 kb EC:45 Rate is 60 beats/min. Rhythm is regular, Normal Sinus Rhythm. QRS [place] is Normal. NE kb interval is normal at 118 msec. QRS interval is normal at 92 msec. QT interval is normal at 390 msec. Clinical impression: Normal ECG. Interpreted by me. Reviewed by me. Administered Medications: No medications were administered Disposition: 07/03/18 18:16 Discharged to Home. Impression: Intermittent swelling of hands. - Condition is Stable. - Discharge Instructions: Edema, [id number]. - Medication Reconciliation Form, Thank You Letter, Antibiotic Education, Prescription Opioid Use form. - Follow up: Emergency Department; When: As needed; Reason: Worsening of condition. Follow up: Private Physician; When: 2 - 3 days; Reason: Recheck today's complaints, Continuance of care, Re-evaluation by your physician. Addendum: 07/05/2018 07:02 Co-signature as Attending Physician, Benigno Chang MD. r n Signatures: Dispatcher [employer] EDMS Elma Jeffries, COMPUTER REPAIR ENGINEER-C COMPUTER REPAIR ENGINEER-Ckb Benigno Chang MD MD rn Calderon, Audri RN RN aa5 Chavo Smiley RN RN mg2 Corrections: (The following items were deleted from the chart) 07/03 16:31 16:28 Pt states he has been noticing intermittent swelling and discoloration to kb bilateral hands for a week. States it could have been going on longer than that, but he just started noticing it a week ago. Discoloration is redness to dorsal aspect of hands and some cyanosis to nails. . kb 18:36 18:16 07/03/2018 18:16 Discharged to Home. Impression: Intermittent swelling of hands. mg2 Condition is Stable. Forms are Medication Reconciliation Form, Thank You Letter, Antibiotic Education, Prescription Opioid Use. Follow up: Emergency Department; When: As needed; Reason: Worsening of condition. Follow up: Private Physician; When: 2 - 3 days; Reason: Recheck today's complaints, Continuance of care, Re-evaluation by your physician. kb
--- NOTE | 2018-07-04 10:48 | EKG ---
Test Date: 2018-07-03 Test Time: 16:39:18 Home Care Specialist: ADRIA MEASUREMENT RESULTS: Intervals: Rate: 60 NC: 118 QRSD: 92 QT: 390 QTc: 390 Holcomb: P: 45 NC: 118 QRS: 68 T: 35 INTERPRETIVE STATEMENTS: Normal sinus rhythm Normal ECG Compared to ECG 06/26/2018 00:51:17 No significant changes Electronically Signed On 07-04-18 10:48:06 CDT by Lopez Ketn
== END 2018-07-03 18:36 | disposition home or self-care (01) ==
LOC: ER 15:18
DX: M79.89 Other specified soft tissue disorders (principal); K21.9 Gastro-esophageal reflux disease without esophagitis; I10 Essential (primary) hypertension; Z79.899 Other long term (current) drug therapy
CPT/HCPCS: 36415; 80048; 85025; 85610; 85730; 93005; 93930; 93970; 99284

== ENCOUNTER 2019-05-19 20:21 | Emergency (ER) | payer OTHER ==
--- OUTSIDE RECORDS SUMMARY | 2019-05-19 20:23 | XMS REPORT ---
:1990 Author Organization eClinicalWorks Care Team Providers Name Role Phone Senthil Rigoberto Provider Role Unavailable Allergies No Known Allergies Problems Problem Type Condition Code Onset Dates Condition Status Assessment Dermatitis L30.9 Active Assessment Swelling of finger M79.89 Active Assessment Swelling of foot joint M25.476 Active Problem Hypersplenism D73.1 Active Problem Immune thrombocytopenic purpura D69.3 Active Problem Allergic rhinitis, unspecified J30.9 Active seasonality, unspecified trigger Assessment Allergic rhinitis, unspecified J30.9 Active seasonality, unspecified trigger Problem GERD without esophagitis K21.9 Active Problem HTN (hypertension), benign I10 Active Medications Medication Code System Code Instructions Start End Date Status Dosage Date Atenolol [facility] 30295713385 50 Orally Once a Active 1 tablet day Nexium [facility] 71725685547 20 MG Orally Once Active 1 capsule a day Results No Known Results Summary Purpose eClinicalWorks Submission
--- OUTSIDE RECORDS SUMMARY | 2019-05-19 20:23 | XMS REPORT ---
:1990 Author Organization e[employer]Works Care Team Providers Name Role Phone Senthil Rigoberto Provider Role Unavailable Allergies, Adverse Reactions, Alerts Substance Reaction Event Type N.K.D.A. Info Not Available Non Drug Allergy Problems Problem Type Condition Code Onset Dates Condition Status Assessment Swelling of foot joint M25.476 Active Assessment Swelling of finger M79.89 Active Assessment Spleen enlarged R16.1 Active Problem Hypersplenism D73.1 Active Problem Immune thrombocytopenic purpura D69.3 Active Problem Allergic rhinitis, unspecified J30.9 Active seasonality, unspecified trigger Assessment LUQ abdominal pain R10.12 Active Problem GERD without esophagitis K21.9 Active Problem HTN (hypertension), benign I10 Active Assessment HTN (hypertension), benign I10 Active Assessment Dermatitis L30.9 Active Assessment Myalgia M79.10 Active Assessment GERD without esophagitis K21.9 Active Assessment Multiple joint pain M25.50 Active Medications Medication Code System Code Instructions Start End Date Status Dosage Date Nexium [facility] 62863786676 20 MG Orally Once Active 1 capsule a day Atenolol ND 93971117078 50 Orally Once a Active 1 tablet day Results No Known Results Summary Purpose eClinicalWorks Submission
[2019-05-19 21:39] LABS: Absolute Lymphocytes (CBC) 2.2 K/uL (0.7-4.9); Basophils % 0.8 % (0-1.3); Hematocrit 45.2 % (39.6-49.0); Lymphocytes % 25.6 % (15.3-44.8); MPV 8.7 fL (7.6-11.3); RBC Red Blood Cell Count 5.11 M/uL (4.33-5.43)
[2019-05-19 21:52] LABS: Barbiturates NEGATIVE (NEGATIVE); Benzodiazepines NEGATIVE (NEGATIVE); Cocaine NEGATIVE (NEGATIVE); METHAMPHETAM NEGATIVE (NEGATIVE); Methadone NEGATIVE (NEGATIVE); Opiates NEGATIVE (NEGATIVE); Phencyclidine NEGATIVE (NEGATIVE); THC Cannibis NEGATIVE (NEGATIVE)
[2019-05-19 22:04] LABS: BUN Blood Urea Nitrogen 20 mg/dL (7-18); Bicarbonate 27 mmol/L (21-32); Glucose Level 97 mg/dL (74-106); Potassium 3.3 mmol/L (3.5-5.1); Sodium Level 140 mmol/L (136-145); Troponin I < 0.02 ng/mL (0.0-0.045)
[2019-05-19] MEDS ORDERED: POTASSIUM CL SA 10 MEQ TAB PO ONE (22:22)
--- NOTE | 2019-05-20 01:45 | ER ---
Nurse's Notes [facility] Name: Juan Diego Bolanos Age: 29 yrs Sex: Male : 1990 Arrival Date: 05/19/2019 Time: 20:25 Bed 6 Private MD: Diagnosis: Palpitation Presentation: 05/19 20:35 Presenting complaint: Patient states: I've had this chest pain for years, did some ca1 tests but have never seen a proper continuous mining machine operator. 2 weeks ago, i felt fluttering and this sinking feeling in my chest, I thought it could be just congestion and cough. But today, I felt it again with coughing. Denies fever. Transition of care: patient was not received from another setting of care. Onset of symptoms was May 19, 2019. Risk Assessment: Do you want to hurt yourself or someone else? Patient reports no desire to harm self or others. Initial Sepsis Screen: Does the patient meet any 2 criteria? No. Patient's initial sepsis screen is negative. Does the patient have a suspected source of infection? No. Patient's initial sepsis screen is negative. Care prior to arrival: None. 20:35 Method Of Arrival: Ambulatory ca1 20:35 Acuity: ÁNGEL 3 ca1 Historical: - Allergies: 20:38 No Known Allergies; ca1 - Home Meds: 20:38 atenolol 50 mg Oral tab 1 tab once daily [Active]; Nexium 20 mg Oral cpDR 1 cap once ca1 daily [Active]; - PMHx: 20:38 enlarged spleen; GERD; Hypertension; ca1 - PSHx: 20:38 Cholecystectomy; ca1 - Immunization history:: Adult Immunizations. - Coronavirus screen:: The patient has NOT traveled to [place] in the past 14 days. The patient has NOT had contact with known/suspected case of Coronavirus?. - Social history:: Smoking status: Smoking status: Patient denies any tobacco usage or history of. - Ebola Screening: : Patient negative for fever greater than or equal to 101.5 degrees Fahrenheit, and additional compatible Ebola Virus Disease symptoms Patient denies exposure to infectious person Patient denies travel to an Ebola-affected area in the 21 days before illness onset No symptoms or risks identified at this time. Screenin:45 Abuse screen: Denies threats or abuse. Nutritional screening: No deficits noted. jb4 Tuberculosis screening: No symptoms or risk factors identified. Fall Risk None identified. Assessment: 20:45 General: Appears in no apparent distress. comfortable, Behavior is calm, cooperative, jb4 appropriate for age. Pain: Denies pain. Pain does not radiate. Pain began 1 hour ago. Neuro: Level of Consciousness is awake, alert, obeys commands, Oriented to person, place, time, situation. Cardiovascular: Heart tones S1 S2 present Patient's skin is warm and dry. Rhythm is sinus rhythm. Respiratory: Reports shortness of breath at rest Airway is patent Respiratory effort is even, unlabored, Respiratory pattern is regular, symmetrical, Breath sounds are clear bilaterally. GI: No signs and/or symptoms were reported involving the gastrointestinal system. Patient currently denies nausea, pain, vomiting. : No signs and/or symptoms were reported regarding the genitourinary system. EENT: No signs and/or symptoms were reported regarding the EENT system. Derm: Skin is intact, Skin is pink, warm \T\ dry. Musculoskeletal: Circulation, motion, and sensation intact. Range of motion: intact in all extremities. 21:45 Reassessment: Patient appears in no apparent distress at this time. Patient and/or jb4 family updated on plan of care and expected duration. Pain level reassessed. Patient is alert, oriented x 3, equal unlabored respirations, skin warm/dry/pink. Patient denies pain at this time. 22:45 Reassessment: Patient appears in no apparent distress at this time. Patient and/or jb4 family updated on plan of care and expected duration. Pain level reassessed. Patient is alert, oriented x 3, equal unlabored respirations, skin warm/dry/pink. 23:45 Reassessment: Patient appears in no apparent distress at this time. Patient and/or jb4 family updated on plan of care and expected duration. Pain level reassessed. Patient is alert, oriented x 3, equal unlabored respirations, skin warm/dry/pink. 05/20 00:30 Reassessment: Patient appears in no apparent distress at this time. Patient and/or jb4 family updated on plan of care and expected duration. Pain level reassessed. Patient is alert, oriented x 3, equal unlabored respirations, skin warm/dry/pink. Pt and significant other verbalized understanding of d/c and follow up instructions. Denies questions or concerns. Ambulated out of ED with steady gait. Patient denies pain at this time. Vital Signs: 05/19 20:38 BP 139 / 102; Pulse 73; Resp 17 S; Temp 98.4(TE); Pulse Ox 100% on R/A; Weight 77.11 kg ca1 (R); Height 6 ft. (182.88 cm) (R); 21:49 BP 133 / 86; Pulse 58; Resp 16; Pulse Ox 98% on R/A; Pain 0/10; jb4 22:15 BP 128 / 79; Pulse 53; Resp 13; Pulse Ox 98% on R/A; lp1 23:00 BP 132 / 85; Pulse 52; Resp 13; Pulse Ox 98% on R/A; lp1 05/20 00:30 BP 124 / 78; Pulse 66; Resp 16; Pulse Ox 100% on R/A; jb4 05/19 20:38 Body Mass Index 23.06 (77.11 kg, 182.88 cm) ca1 ED Course: 05/19 20:25 Patient arrived in ED. jg7 20:37 Triage completed. ca1 20:38 Arm band placed on right wrist. ca1 20:42 EKG completed in triage. Results shown to MD. ca1 20:43 Delmar Kim MD is Attending Physician. pkl 20:45 Patient has correct armband on for positive identification. Placed in gown. Bed in low jb4 position. Call light in reach. Side rails up X 1. campus monitor on. Pulse ox on. NIBP on. 20:45 Patient maintains SpO2 saturation greater than 95% on room air. jb4 21:03 Kenny Head RN is Primary Nurse. jb4 21:10 Initial lab(s) drawn, by ar, sent to lab. Inserted saline lock: 20 gauge in right jb4 antecubital area, using aseptic technique. Blood collected. 05/20 00:10 Nazario Hernandez MD is Referral Physician. pkl 00:30 No provider procedures requiring assistance completed. IV discontinued, intact, jb4 bleeding controlled, No redness/swelling at site. Pressure dressing applied. Administered Medications: 05/19 22:22 Drug: K-Dur 20 mEq Route: PO; jb4 23:00 Follow up: Response: No adverse reaction jb4 Outcome: 05/20 00:10 Discharge ordered by . pkl 00:30 Discharged to home ambulatory, with significant other. jb4 00:30 Condition: stable 00:30 Discharge instructions given to patient, significant other, Instructed on discharge instructions, follow up and referral plans. Demonstrated understanding of instructions, follow-up care. 00:35 Patient left the ED. jb4 Signatures: Delmar Kim MD MD pkl Pena, Laura RN RN lp1 Kenny Head RN RN jb4 Zuleyma Pavon RN RN Nayla Richardson
--- NOTE | 2019-05-20 01:46 | EDPHYS ---
Physician Documentation [facility] Name: Juan Diego Bolanos Age: 29 yrs Sex: Male : 1990 Arrival Date: 05/19/2019 Time: 20:25 Bed 6 Private MD: ED Physician Delmar Kim HPI: 05/19 20:57 This 29 yrs old Male presents to ER via Ambulatory with complaints of Chest pkl Pain. 20:59 The patient presents with a history of fluttering. Context: The symptoms occur at rest. pkl Onset: The symptoms/episode began/occurred just prior to arrival. Associated signs and symptoms: Pertinent positives: near-syncope. The patient has experienced similar episodes in the past, a few times. Historical: - Allergies: 20:38 No Known Allergies; ca1 - Home Meds: 20:38 atenolol 50 mg Oral tab 1 tab once daily [Active]; Nexium 20 mg Oral cpDR 1 cap once ca1 daily [Active]; - PMHx: 20:38 enlarged spleen; GERD; Hypertension; ca1 - PSHx: 20:38 Cholecystectomy; ca1 - Immunization history:: Adult Immunizations. - Coronavirus screen:: The patient has NOT traveled to [place] in the past 14 days. The patient has NOT had contact with known/suspected case of Coronavirus?. - Social history:: Smoking status: Smoking status: Patient denies any tobacco usage or history of. - Ebola Screening: : Patient negative for fever greater than or equal to 101.5 degrees Fahrenheit, and additional compatible Ebola Virus Disease symptoms Patient denies exposure to infectious person Patient denies travel to an Ebola-affected area in the 21 days before illness onset No symptoms or risks identified at this time. ROS: 20:59 Eyes: Negative for injury, pain, redness, and discharge, ENT: Negative for injury, pkl pain, and discharge, Neck: Negative for injury, pain, and swelling. 20:59 Cardiovascular: Positive for palpitations. 20:59 Respiratory: Negative for shortness of breath. 20:59 Abdomen/GI: Negative for abdominal pain, nausea, vomiting, and diarrhea. 20:59 Back: Negative for acute changes. 20:59 : Negative for urinary symptoms. 20:59 MS/extremity: Negative for acute changes. 20:59 Skin: Negative for rash. 20:59 Neuro: Negative for altered mental status. Exam: 20:59 Head/Face: Normocephalic, atraumatic. Eyes: Pupils equal round and reactive to light, pkl extra-ocular motions intact. Lids and lashes normal. Conjunctiva and sclera are non-icteric and not injected. Cornea within normal limits. Periorbital areas with no swelling, redness, or edema. ENT: Nares patent. No nasal discharge, no septal abnormalities noted. Tympanic membranes are normal and external auditory canals are clear. Oropharynx with no redness, swelling, or masses, exudates, or evidence of obstruction, uvula midline. Mucous membranes moist. Neck: Trachea midline, no thyromegaly or masses palpated, and no cervical lymphadenopathy. Supple, full range of motion without nuchal rigidity, or vertebral point tenderness. No Meningismus. Chest/axilla: Normal chest wall appearance and motion. Nontender with no deformity. No lesions are appreciated. 20:59 Cardiovascular: Rate: normal, Rhythm: regular. 20:59 ECG was reviewed by the Attending Physician. 20:59 Respiratory: the patient does not display signs of respiratory distress, Respirations: normal, Breath sounds: are clear throughout. 20:59 Abdomen/GI: Exam negative for acute changes. 20:59 Back: Exam negative for acute changes. 20:59 : Exam negative for acute changes. 20:59 Musculoskeletal/extremity: Exam is negative for acute changes. 20:59 Skin: Exam negative for rash. 20:59 Neuro: Orientation: is normal, Mentation: is normal, Cranial nerves: grossly normal, Motor: is normal. Vital Signs: 20:38 BP 139 / 102; Pulse 73; Resp 17 S; Temp 98.4(TE); Pulse Ox 100% on R/A; Weight 77.11 kg ca1 (R); Height 6 ft. (182.88 cm) (R); 21:49 BP 133 / 86; Pulse 58; Resp 16; Pulse Ox 98% on R/A; Pain 0/10; jb4 22:15 BP 128 / 79; Pulse 53; Resp 13; Pulse Ox 98% on R/A; lp1 23:00 BP 132 / 85; Pulse 52; Resp 13; Pulse Ox 98% on R/A; lp1 05/20 00:30 BP 124 / 78; Pulse 66; Resp 16; Pulse Ox 100% on R/A; jb4 02/23 20:38 Body Mass Index 23.06 (77.11 kg, 182.88 cm) ca1 MDM: 05/19 20:43 Patient medically screened. pkl 05/20 00:09 Data reviewed: vital signs, nurses notes, lab test result(s), EKG, radiologic studies, pkl plain films. 05/20 00:25 Order name: CBC with Automated Diff EDMS 05/19 20:57 Order name: EKG; Complete Time: 01:07 pkl 05/19 20:58 Order name: Saline Lock; Complete Time: 21:14 pkl 05/20 00:25 Order name: Urine Drug Screen EDMS 05/20 00:26 Order name: Basic Metabolic Panel EDMS 05/20 00:27 Order name: Troponin I EDMS 05/20 00:27 Order name: Thyroid Stimulating Hormone EDMS Administered Medications: 05/19 22:22 Drug: K-Dur 20 mEq Route: PO; jb4 23:00 Follow up: Response: No adverse reaction jb4 Disposition: 05/20/19 00:10 Discharged to Home. Impression: Palpitation. - Condition is Stable. - Work release form, Medication Reconciliation Form, Thank You Letter, Antibiotic Education, Prescription Opioid Use form. - Follow up: Nazario Hernandez MD; When: 2 - 3 days; Reason: Re-evaluation by your physician. - Problem is new. - Symptoms have improved. Signatures: Dispatcher [employer]DAK Delmar Kim MD MD pkl Kenny Head RN RN jb4 Zuleyma Pavon RN RN ca1 Corrections: (The following items were deleted from the chart) 05/20 00:35 00:10 05/20/2019 00:10 Discharged to Home. Impression: Palpitation. Condition is jb4 Stable. Forms are Medication Reconciliation Form, Thank You Letter, Antibiotic Education, Prescription Opioid Use. Follow up: Nazario Hernandez; When: 2 - 3 days; Reason: Re-evaluation by your physician. Problem is new. Symptoms have improved. pkl
[2019-05-20 03:41] LABS: Urine Blood NEGATIVE (NEG); Urine Glucose NEGATIVE (NEG); Urine Protein NEGATIVE (NEG)
[2019-05-20 04:11] VITALS: TEMP 98.4
[2019-05-20 04:16] VITALS: BP 124/78; O2SAT 100
--- NOTE | 2019-05-20 08:06 | RAD REPORT ---
EXAM DESCRIPTION: [facility] Single View05/20/2019 12:02 am CLINICAL HISTORY: Chest pain COMPARISON: 2018 FINDINGS: The lungs appear clear of acute infiltrate. The heart is normal size IMPRESSION: No acute abnormalities displayed
--- NOTE | 2019-05-20 08:53 | EKG ---
Test Date: 2019-05-19 Test Time: 20:44:14 [facility]: [facility] MEASUREMENT RESULTS: Intervals: Rate: 63 MD: 126 QRSD: 92 QT: 394 QTc: 403 [place]: P: 58 MD: 126 QRS: 64 T: 23 INTERPRETIVE STATEMENTS: Normal sinus rhythm Normal ECG Compared to ECG 07/03/2018 16:39:18 No significant changes Electronically Signed On 05-20-19 08:52:34 PLACEMENT MANAGER by Lopez Kent
== END 2019-05-20 00:35 | disposition home or self-care (01) ==
LOC: ER 20:21
DX: R00.2 Palpitations (principal); I10 Essential (primary) hypertension; K21.9 Gastro-esophageal reflux disease without esophagitis
CPT/HCPCS: 36415; 71045; 80048; 80307; 81003; 84443; 84484; 85025; 93005; 99285